=== PATIENT | female | born 2000 | race Caucasian/White ===

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

== ENCOUNTER 2019-05-03 09:45 | Emergency (ER) | payer SELFPAY ==
[2019-05-03 09:49] VITALS: BP 113/61; PULSE 107; RESP 18; TEMP 36.2; O2SAT 98
--- NOTE | 2019-05-03 10:14 | ED.GENADUL_ITS ---
Discharge Plan Disposition Patient Disposition: HOME Condition: Improving Discharge Details Chief Complaint: RespSymp Clinical Impression: Acute sinusitis Primary Care Provider: Kelvin Mcelroy ED Provider: Chucky Chow Home Meds and New Rx's Prescriptions: New amoxicillin-pot clavulanate 875-125 mg tablet 1 tab PO BID 10 Days Qty: 20 RF: 0 No Action No Known Home Meds RF: 0 Discharge Instructions Instructions: Sinusitis (ED) Additional Instructions: Home to rest. Small, frequent sips of fluids to maintain hydration. Tylenol and or ibuprofen if needed for discomfort. Please take dzyp-iye-hgoqcbu probiotic/live culture yogurt once daily in the middle of the day while on antibiotic. Follow-up with regular doctor if not improving in 7 days time. Return to the ER for any acute concern. Medical Decision Making 19-year-old female with 10 days of cough, congestion, now with left maxillary sinus pain and pressure. She is afebrile, otherwise well-appearing, she is able to take liquids by mouth. Her presentation is consistent with acute sinusitis. I will treat her with a course of Augmentin. Discussed with her the use of an olql-pqn-zylxbel probiotic or live culture yogurt while on antibiotic. She stable for outpatient management. HPI General Mode of arrival: ambulatory . Date/Time Provider Initiated Documentation: 05/03/19 09:46 . Limitations to Documentation: no limitations . Information obtained by: patient . History of Present Illness 19 year old F presents to the emergency department with the chief complaint of Cough and sinus pressure over 10 days time, Quality is described as constant, and is localized to the face and left. Patient reports no radiation. Patient started experiencing this day(s) and it has been constant. No relieving factors improve symptom(s), No exacerbating factors reported . Patient did receive the following treatments prior to arrival, none Related Data Home Medications Medication Instructions Recorded Confirmed Unknown [No Known Home Meds] 05/03/19 05/03/19 amoxicillin-pot clavulanate 1 tab PO BID 10 Days #20 tab 05/03/19 Previous Rx's Medication Instructions Recorded amoxicillin-pot clavulanate 1 tab PO BID 10 Days #20 tab 05/03/19 Allergies Allergy/AdvReac Type Severity Reaction Status Date / Time No Known Allergies Allergy Unverified 05/03/19 09:52 General Stated Complaint: RespSymp BAUTISTA: 4 Review of Systems Narrative: 6 systems reviewed and otherwise negative [facility] Medical History ANGER ISSUES Bunion of great toe of left foot DEPRESSION OR ANXIETY FTT (failure to thrive) in infant Formula intolerance. Hospitalized. Term of fraternal twins, both living Twin A born at 40 weeks. Healthy Surgical History Fracture, Closed Treatment Thumb - right Family History Mother Mental disorder DEPRESSION OR ANXIETY Father Mental disorder DEPRESSION OR ANXIETY [place] Substance abuse Mental disorder DEPRESSION OR ANXIETY Grandparent Mental disorder MGF Other Myocardial infarction [place] + Tripe bypass < age 50 Social History (Updated 06/20/18 @ 18:38 by Deana Adair DO) Smoking/Tobacco Use Status: Current every day Alcohol Intake: never Drug use: Occasionally Substance use type: marijuana Do you feel safe at home: Yes Do you feel safe in your relationship?: Yes Exam Narrative Exam Narrative: GEN: awake, alert, oriented 3. Pleasant, well groomed, interactive. HEAD: Normocephalic, atraumatic ENT: Mucous membranes moist, left maxillary sinus tenderness to percussion oropharynx unremarkable, External ear exam unremarkable EYES: PERRL, EOMI NECK: Full ROM, no HERNESTO, no menigismus CHEST/RESP: Nontender, clear to auscultation bilateral, no wheeze/rhonchi/rales CARDIOVASCULAR: RRR, no murmur, rub vargas. 2+ Rad pulse bilateral ABDOMEN: Soft, nontender, no mass. +Bowel sounds EXT: Full ROM, no edema, no rash Neuro: Grossly normal neurologic exam, conversant, interactive. Psych: Speech fluent, thoughts congruent, affect normal Course Vital Signs Vital signs: Vital Signs Temperature 36.2 C L 05/03/19 09:49 Pulse 107 H 05/03/19 09:49 Respiratory Rate 18 05/03/19 09:49 Blood Pressure 113/61 05/03/19 09:49 Pulse Oximetry 98 05/03/19 09:49 Temperature 36.2 C L 05/03/19 09:49 Temperature Source Temporal Artery Scan 05/03/19 09:49 Pulse 107 H 05/03/19 09:49 Respiratory Rate 18 05/03/19 09:49 Respiratory Effort Non-Labored 05/03/19 09:49 Blood Pressure 113/61 05/03/19 09:49 Pulse Oximetry 98 05/03/19 09:49 Oxygen Delivery Method Room Air 05/03/19 09:49 Oxygen Flow Rate 0 05/03/19 09:49 Pain Level 10 05/03/19 09:49
== END 2019-05-03 10:19 | disposition home or self-care (01) ==
PROVIDERS: Emergency Provider Emergency Medicine; PCP Pediatrics
DX: J01.00 Acute maxillary sinusitis, unspecified (principal)
CPT/HCPCS: 99282

== ENCOUNTER 2020-04-07 12:52 | Emergency (ER) | payer SELFPAY ==
[2020-04-07 13:00] VITALS: BP 117/67; PULSE 100; RESP 18; TEMP 36.6; O2SAT 100
[2020-04-07 13:15] LABS: Bilirubin Negative (Negative); Blood Negative (Negative); Clarity Clear (Clear); Glucose Negative (Negative); Ketones Negative (Negative); Leukocyte Esterase Trace (Negative); Nitrite Negative (Negative); Specific Gravity >= 1.030 (1.005-1.025); Urobilinogen 0.2 EU/dL (Up TO 0.2)
[2020-04-07 13:26] LABS: Bacteria Moderate HPF (Negative); C & S Indicated? No/Sq. Contamination; Casts Negative LPF (Negative); Crystals Many Amorphous HPF (Negative); Epithelial Cells Moderate HPF (Negative); Mucus Negative (Negative); RBC Negative HPF (0-2)
[2020-04-07 15:04] VITALS: BP 117/89; PULSE 105; RESP 24; TEMP 36.6; O2SAT 98
[2020-04-07 15:29] LABS: Bilirubin Negative (Negative); Blood Negative (Negative); Clarity Cloudy (Clear); Glucose Negative (Negative); Ketones Negative (Negative); Leukocyte Esterase Trace (Negative); Nitrite Negative (Negative); Specific Gravity 1.025 (1.005-1.025); Urobilinogen 0.2 EU/dL (Up TO 0.2)
[2020-04-07 15:44] LABS: Bacteria Moderate HPF (Negative); C & S Indicated? Yes; Casts Negative LPF (Negative); Crystals Negative HPF (Negative); Epithelial Cells Few HPF (Negative); Mucus Negative (Negative); RBC 0-2 HPF (0-2)
--- NOTE | 2020-04-07 16:03 | ED.GENADUL_ITS ---
Discharge Plan Disposition Patient Disposition: HOME Condition: Stable Discharge Details Clinical Impression: Suprapubic discomfort, UTI (urinary tract infection) Primary Care Provider: Kelvin Mcelroy ED Provider: Zoran Trejo Home Meds and New Rx's Prescriptions: New cephalexin [Keflex] 500 mg capsule 500 mg PO BID Qty: 10 RF: 0 Discharge Instructions Instructions: Urinary Tract Infection in Women (ED) Additional Instructions: Please follow-up with primary care physician of preference or women's wellness. If symptoms persist, you may need additional diagnostic testing. Return to the ER immediately for any worsening or new concerning symptoms. Referrals: [facility] [Provider Group] Sheba Olivier NP [NURSE PRACTITIONER] - Discharge Data Discharge Date/Time-TO BE ENTERED AT DEPARTURE: 04/07/20 16:25 Medical Decision Making 20-year-old female here with suprapubic abdominal discomfort with urination and also was bowel movement. Abdominal exam benign. She has no tenderness on exam. Initial urinalysis contaminated. Repeat urinalysis shows decreased epithelial cells, trace leukocyte esterase, moderate bacteria and 5-10 WBCs. Culture pending. Plan to initiate treatment for urinary tract infection with Keflex. Patient has no vaginal discharge, pain or lesions. 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 She is interested in seeing Sheba Mccall to establish primary care. Discharge instructions reviewed with the patient and she was encouraged to return for any worsening or new concerning symptoms. She understands importance of timely follow-up. She understands that if symptoms persist she may need a dditional diagnostic testing. I have placed her on the care management list to assist with arranging PCP follow-up. HPI General Mode of arrival: ambulatory . Date/Time Provider Initiated Documentation: 04/07/20 12:55 . Limitations to Documentation: no limitations . Information obtained by: patient . HPI Narrative: 20-year-old female presents with chief complaint of abdominal discomfort. Patient notes suprapubic abdominal discomfort described as painful increased pressure with urination. She also has the same mild discomfort with some bowel movements. Patient states symptoms have been present since yesterday but she has had similar intermittently in the past. She denies flank pain. She does states she has had some urgency to urinate. Patient is sexually active. She uses barrier protection condoms. She denies vaginal discharge, pain or genital lesions. Last menstrual period was about a month ago and patient notes she does have irregular periods. Related Data Home Medications Medication Instructions Recorded Confirmed cephalexin [Keflex] 500 mg PO BID #10 cap 04/07/20 Previous Rx's Medication Instructions Recorded cephalexin [Keflex] 500 mg PO BID #10 cap 04/07/20 Allergies Allergy/AdvReac Type Severity Reaction Status Date / Time No Known Allergies Allergy Unverified 04/07/20 13:02 General Stated Complaint: Urinary BAUTISTA: 3 Review of Systems All systems reviewed & are unremarkable except as noted in HPI and below Constitutional Constitutional: Denies fever(s) Gastrointestinal Gastrointestinal: Reports as per HPI Genitourinary Genitourinary: Reports as per HPI [facility] Medical History ANGER ISSUES Bunion of great toe of left foot DEPRESSION OR ANXIETY FTT (failure to thrive) in Formula intolerance. Hospitalized. Term of fraternal twins, both living Twin A born at 40 weeks. Healthy Surgical History Fracture, Closed Treatment Thumb - right Family History Mother Mental disorder DEPRESSION OR ANXIETY Father Mental disorder DEPRESSION OR ANXIETY [place] Substance abuse Mental disorder DEPRESSION OR ANXIETY Grandparent Mental disorder MGF Other Myocardial infarction CT + Tripe bypass < age 50 Social History (Updated 04/07/20 @ 21:27 by Zoran Trejo MD) Smoking/Tobacco Use Status: Former Tobacco Use Alcohol Intake: never Drug use: Occasionally Substance use type: marijuana Do you feel safe at home: Yes Do you feel safe in your relationship?: Yes Exam Const General: cooperative and no acute distress HENMT Mouth: moist mucous membranes Eyes Conjunctivae: normal conjunctivae Sclera: normal sclerae Resp Auscultation: clear to auscultation bilaterally, no rales, no rhonchi and no wheezes Cardio Rate: tachycardic Rhythm: regular rhythm GI Palpation: soft, not firm, no guarding, no masses, not rigid and nontender Skin General skin exam: no rashes or lesions noted Neuro General: patient alert, patient awake and tone normal Psych Appearance: grossly normal Mental Status: mental status grossly normal Speech and Movement: speech and movement normal Course Vital Signs Vital signs: Vital Signs Temperature 36.6 C 10/01/20 13:00 Pulse 100 H 04/07/20 13:00 Respiratory Rate 18 04/07/20 13:00 Blood Pressure 117/67 04/07/20 13:00 Pulse Oximetry 100 04/07/20 13:00 Temperature 36.6 C 04/07/20 15:04 Temperature Source Temporal Artery Scan 04/07/20 15:04 Pulse 105 H 04/07/20 15:04 Respiratory Rate 24 04/07/20 15:04 Respiratory Effort Non-Labored 04/07/20 13:15 Blood Pressure 117/89 04/07/20 15:04 Blood Pressure Position Sitting 04/07/20 13:00 Pulse Oximetry 98 04/07/20 15:04 Oxygen Delivery Method Room Air 04/07/20 15:04 Oxygen Flow Rate 0 04/07/20 15:04 Pain Level 4 04/07/20 13:00 Lab/Test Results Lab/Test Results: 04/07/20 15:17 Urine - Reflex from Ua Urine Culture - Pending Laboratory Tests Range/Units 04/07/20 04/07/20 13:00 15:17 Urine Color (Yellow) Yellow Yellow Urine Clarity (Clear) Clear Cloudy Urine pH (5-8) 7.0 7.0 Ur Specific [place] (1.005-1.025) >= 1.030 H 1.025 Urine Protein (Negative) mg/dL Negative Negative Urine Ketones (Negative) mg/dL Negative Negative Urine Blood (Negative) Negative Negative Urine Nitrite (Negative) Negative Negative Urine Bilirubin (Negative) Negative Negative Urine Urobilinogen (Up TO 0.2) EU/dL 0.2 0.2 Ur Leukocyte Esterase (Negative) Trace H Trace H Urine RBC (0-2) HPF Negative 0-2 Urine WBC (0-5) HPF 10-20 H 5-10 Ur Epithelial Cells (Negative) HPF Moderate Few Urine Crystals (Negative) HPF Many amorphous Negative Urine Bacteria (Negative) HPF Moderate Moderate Urine Casts (Negative) LPF Negative Negative Urine Mucus (Negative) Negative Negative Ur Culture Indicated? No/sq. contamination Yes Urine Glucose (Negative) mg/dL Negative Negative POC- Test(urine) Negative
[2020-04-07] MEDS: Cephalexin 500 MG CAP PO (16:14)
[2020-04-07 16:23] VITALS: BP 112/71; PULSE 77; RESP 16; O2SAT 100
--- NOTE | 2020-04-07 20:05 | NUR.NOTE ---
Referral to care management to establish pcpNursing Note:
--- NOTE | 2020-04-08 12:58 | CMPROGNOTE_ITS ---
- If Service Date Differs Date of service: 04/08/20 Time of Service: 12:58 Care Management Progress Note Debbie is seen in the ED on 04/07/2020 for a UTI and abdominal pain. At the request of Dr. Young, ED provider, RADHA coordinates a referral to [facility] to establish care with gynecology and, at patient's request, to Sheba Olivier [facility]UR[facility] MANAGER[facility] of [facility], to establish care with a PCP. After speaking with Debbie on the telephone, RADHA also coordinates a referral to [facility] to assist her in obtaining health insurance, as she is currently uninsured.
== END 2020-04-07 16:25 | disposition home or self-care (01) ==
LOC: ER 16:15
PROVIDERS: Emergency Provider Student in an Organized Health Care Education/Training Program; PCP Pediatrics
DX: N39.0 Urinary tract infection, site not specified (principal)
CPT/HCPCS: 81025; 99283; 81003; 81015; 87086

== ENCOUNTER 2021-11-17 13:08 | Emergency (ER) | payer SELFPAY ==
[2021-11-17 13:18] VITALS: BP 140/85; PULSE 111; RESP 16; TEMP 36.4; O2SAT 98
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
[2021-11-17 15:31] VITALS: BP 111/72; PULSE 86; RESP 18; TEMP 36.6; O2SAT 98
== END 2021-11-17 16:01 | disposition home or self-care (01) ==
PROVIDERS: Emergency Provider Physician Assistant
DX: M79.672 Pain in left foot (principal); M25.562 Pain in left knee; V49.9XXA Car occupant (driver) (passenger) injured in unspecified traffic accident, initial encounter; R00.0 Tachycardia, unspecified
CPT/HCPCS: 90471; 99284; 71046; 73630; 99283

== ENCOUNTER 2023-01-03 14:13 | Emergency (ER) | payer SELFPAY ==
[2023-01-03 14:21] VITALS: BP 112/72; PULSE 113; RESP 18; TEMP 36.7; O2SAT 99
--- NOTE | 2023-01-03 16:30 | ED.GENADUL_ITS ---
Discharge Plan Disposition Patient Disposition: Eloped Condition: Stable Discharge Details Chief Complaint: Sorethroat Clinical Impression: Sore throat, Tonsillar calculus Primary Care Provider: None,None ED Provider: Aditya Rodriguez Home Meds and New Rx's Prescriptions: No Action No Known Home Meds Medical Decision Making 22-year-old female presents with 1 day of sore throat, subjective fever at home, pain with swallowing, normal voice no stridor, tolerating secretions, midline uvula, does have some posterior oropharyngeal erythema with induration of the r ight tonsil compared to left, notable tonsillar stone to mid pole of right tonsil. Rapid strep negative. Trial of dexamethasone, will anesthetize oropharynx with benzocaine and attempt to express tonsillar stone. No evidence of deep space infection of head or neck. We will send strep culture. 17: 30 he was going to attempt to express tonsillar stone however patient eloped before reassessment HPI General Date/Time Provider Initiated Documentation: 01/03/23 16:15 . HPI Narrative: 22-year-old female presents with 1 day of sore throat. Pain with swallowing and a fever last night subjective. Related Data Home Medications Medication Instructions Recorded Confirmed Unknown [No Known Home Meds] 11/17/21 01/03/23 Allergies Allergy/AdvReac Type Severity Reaction Status Date / Time No Known Allergies Allergy Unverified 01/03/23 14:30 General Stated Complaint: Sorethroat BAUTISTA: 4 Review of Systems Narrative: Review of Systems Constitutional: negative Eyes: negative ENT: Sore throat Cardiovascular: negative Respiratory: negative Gastrointestinal: negative : negative Musculoskeletal: negative Skin: negative Neurologic: negative Psych: negative PFSH All Active Problems (Updated 01/03/23 @ 17:30 by Aditya Rodriguez MD) Sore throat (Acute) Tonsillar calculus (Acute) Recurrent abdominal pain (Chronic 06/16/15) Routine sports examination for healthy child or adolescent (Chronic 12/09/12) Normal weight (Chronic 06/16/15) Fecal urgency (Chronic 02/02/15) Family history of celiac disease (Chronic 02/02/15) Family history of cardiovascular disease (Chronic 02/02/15) MATERNAL UNCLE [place] AND TRIPLE BY-PASS AGE 35 Anxiety (Chronic 03/19/16) Medical History (Updated 01/03/23 @ 17:30 by Aditya Rodriguez MD) ANGER ISSUES Bunion of great toe of left foot DEPRESSION OR ANXIETY FTT (failure to thrive) in infant Formula intolerance. Hospitalized. Term of fraternal twins, both living Twin A born at 40 weeks. Healthy Surgical History Fracture, Closed Treatment Thumb - right Family History Mother Mental disorder DEPRESSION OR ANXIETY Father Mental disorder DEPRESSION OR ANXIETY [place] Substance abuse Mental disorder DEPRESSION OR ANXIETY Grandparent Mental disorder MGF Other Myocardial infarction [place] + Tripe bypass < age 50 Social History (Updated 04/07/20 @ 21:27 by Zoran Trejo MD) Smoking/Tobacco Use Status: Current every day Tobacco Type: cigarettes Smoking risk assessment performed?: Yes Alcohol Intake: never Drug use: Occasionally Substance use type: marijuana Do you feel safe at home: Yes Do you feel safe in your relationship?: Yes Exam Narrative Exam Narrative: Physical Examination General: alert, awake, cooperative, resting comfortably, no acute distress HEENT: normocephalic, atraumatic; PERRL, EOM intact, conjunctiva normal; no nasal discharge; mild erythema to posterior oropharynx, right tonsil enlarged compared to left, notable tonsillar stone mid pole of right tonsil; midline uvula tolerating secretions no stridor, normal voice Neck: supple, trachea midline; full ROM Chest: normal to inspection Course Vital Signs Vital signs: Vital Signs Temperature 36.7 C 01/03/23 14:21 Pulse 113 H 01/03/23 14:21 Respiratory Rate 18 01/03/23 14:21 Blood Pressure 112/72 01/03/23 14:21 Pulse Oximetry 99 01/03/23 14:21 Temperature 36.7 C 01/03/23 14:21 Temperature Source Temporal Artery Scan 01/03/23 14:21 Pulse 113 H 01/03/23 14:21 Respiratory Rate 18 01/03/23 14:21 Respiratory Effort Normal 01/03/23 14:30 Blood Pressure 112/72 01/03/23 14:21 Blood Pressure Position Sitting 01/03/23 14:21 Pulse Oximetry 99 01/03/23 14:21 Oxygen Delivery Method Room Air 01/03/23 14:21 Oxygen Flow Rate 0 01/03/23 14:21 Pain Level 8 01/03/23 14:21 Lab/Test Results Lab/Test Results: 01/03/23 14:27 Pharynx Group A Streptococcus Culture - Pending POC Strep Test-STEPHAN(Rapid) Start: 01/03/23 14:39 Freq: Status: Active Protocol: Document 01/03/23 14:40 ROSALIE (Rec: 01/03/23 14:40 ROSALIE [id number]) Strep test-STEPHAN(Rapid)-POC POC-Strep test-STEPHAN (Rapid) Negative POC-Strep test-STEPHAN (Rapid) Negative
[2023-01-03] MEDS: Dexamethasone 10 MG/ML VIAL PO (16:38)
--- NOTE | 2023-01-03 17:28 | NUR.NOTE ---
Nursing Note: Pt eloped following assessment by physician and medication administration.
== END 2023-01-03 17:30 | disposition left against medical advice (07) ==
PROVIDERS: Emergency Provider Emergency Medicine
DX: J35.8 Other chronic diseases of tonsils and adenoids (principal); J02.9 Acute pharyngitis, unspecified
CPT/HCPCS: 87880; 99283; 87081; J1100

== ENCOUNTER 2023-10-04 15:48 | Emergency (ER) | payer SELFPAY ==
[2023-10-04 15:52] VITALS: BP 145/90; PULSE 113; RESP 18; TEMP 36.9; O2SAT 145
[2023-10-04 16:12] LABS: Bilirubin Negative (Negative); Blood Large (Negative); Clarity Turbid (Clear); Glucose Negative (Negative); Ketones Negative (Negative); Leukocyte Esterase Small (Negative); Nitrite Negative (Negative); Specific Gravity >= 1.030 (1.005-1.025); Urobilinogen 0.2 mg/dL (Up to 0.2)
[2023-10-04 16:15] LABS: Bacteria Few HPF (Negative); C & S Indicated? Yes; Casts Negative LPF (Negative); Crystals Negative HPF (Negative); Epithelial Cells Few HPF (Negative); Mucus Moderate (Negative); RBC >50 HPF (0-2); WBC >50 HPF (0-5)
--- NOTE | 2023-10-04 21:14 | ED.GENADUL_ITS ---
Discharge Plan Disposition Patient Disposition: Home Discharge Details Clinical Impression: UTI (urinary tract infection) Primary Care Provider: Unknown,Unknown ED Provider: Radha Mckay Home Meds and New Rx's Prescriptions: New nitrofurantoin monohyd/m-cryst [Macrobid] 100 mg capsule 100 mg PO Q12H 7 Days Qty: 14 0RF Rx Instructions: must administer with a meal/food No Action No Known Home Meds Discharge Instructions Instructions: Urinary Tract Infection in Women (ED) Additional Instructions: take antibiotic as prescribed yogurt daily while on antibiotic should you have persistent symptoms after antibiotic is completed, please be reevaluated Discharge Data Discharge Date/Time-TO BE ENTERED AT DEPARTURE: 10/04/23 16:30 HPI General Date/Time Provider Initiated Documentation: 10/04/23 16:04 . HPI Narrative: This 23-year-old female presents with report of urinary frequency and urgency. Denies any flank pain. Sexually active and monogamous. Status post elective approximately 2 months ago but has not had any pelvic pain per patient. Denies any vaginal discharge. Denies any chest pain, shortness of breath, weakness. Related Data Home Medications Medication Instructions Recorded Confirmed Unknown [No Known Home Meds] 11/17/21 10/04/23 nitrofurantoin 100 mg PO Q12H 7 days #14 caps 10/04/23 monohydrate/macrocrystals 100 mg capsule (Macrobid) Previous Rx's Medication Instructions Recorded nitrofurantoin 100 mg PO Q12H 7 days #14 caps 10/04/23 monohydrate/macrocrystals 100 mg capsule (Macrobid) Allergies Allergy/AdvReac Type Severity Reaction Status Date / Time No Known Allergies Allergy Unverified 10/04/23 15:54 General Stated Complaint: Urinary BAUTISTA: 4 Course Vital Signs Vital signs: Vital Signs Temperature 36.9 C 10/04/23 15:52 Pulse 113 H 10/04/23 15:52 Respiratory Rate 18 10/04/23 15:52 Blood Pressure 145/90 H 10/04/23 15:52 Pulse Oximetry 145 H 10/04/23 15:52 Temperature 36.9 C 10/04/23 15:52 Temperature Source Skin 10/04/23 15:52 Pulse 113 H 10/04/23 15:52 Respiratory Rate 18 10/04/23 15:52 Respiratory Effort Normal 10/04/23 15:54 Blood Pressure 145/90 H 10/04/23 15:52 Blood Pressure Position Sitting 10/04/23 15:52 Pulse Oximetry 145 H 10/04/23 15:52 Oxygen Delivery Method Room Air 10/04/23 15:52 Oxygen Flow Rate 0 10/04/23 15:52 Pain Level 5 10/04/23 16:12 Lab/Test Results Lab/Test Results: 10/04/23 16:05 Urine - Reflex from Ua Urine Culture - Pending Laboratory Tests Range/Units 10/04/23 16:05 Urine Color (Yellow) Yellow Urine Clarity (Clear) Turbid Urine pH (5-8) 6.0 Ur Specific [place] (1.005-1.025) >= 1.030 H Urine Protein (Neg-Trace) mg/dL Negative Urine Ketones (Negative) mg/dL Negative Urine Blood (Negative) Large H Urine Nitrite (Negative) Negative Urine Bilirubin (Negative) Negative Urine Urobilinogen (Up to 0.2) mg/dL 0.2 Ur Leukocyte Esterase (Negative) Small H Urine RBC (0-2) HPF >50 H Urine WBC (0-5) HPF >50 H Ur Epithelial Cells (Negative) HPF Few Urine Crystals (Negative) HPF Negative Urine Bacteria (Negative) HPF Few Urine Casts (Negative) LPF Negative Urine Mucus (Negative) Moderate Ur Culture Indicated? Yes Urine Glucose (Negative) mg/dL Negative POC- Test(urine) Negative Medical Decision Making Urinalysis concerning for urinary tract infection, does not express concern for sexually transmitted disease, oxygenation 98 on room air, pulse 101 at reassessment by me Urinalysis will be sent for culture Will initiate Macrobid Patient is alert and oriented, no acute distress, no abdominal tenderness appreciated, no CVA tenderness No vomiting Aware that should she have persistent symptoms despite taking antibiotic she should be reevaluated Return precautions reviewed and patient expressed understanding Quality:SDOH Health Related Social Needs: No Data to Display PFSH All Active Problems (Updated 10/04/23 @ 16:21 by VIVIENNE Elise) UTI (urinary tract infection) (Acute) Recurrent abdominal pain (Chronic 06/16/15) Routine sports examination for healthy child or adolescent (Chronic 12/09/12) Normal weight (Chronic 06/16/15) Fecal urgency (Chronic 02/02/15) Family history of celiac disease (Chronic 02/02/15) Family history of cardiovascular disease (Chronic 02/02/15) MATERNAL UNCLE [place] AND TRIPLE BY-PASS AGE 35 Anxiety (Chronic 03/19/16) Medical History (Updated 10/04/23 @ 16:21 by VIVIENNE Elise) Bunion of great toe of left foot FTT (failure to thrive) in Formula intolerance. Hospitalized. Term of fraternal twins, both living Twin A born at 40 weeks. Healthy DEPRESSION OR ANXIETY ANGER ISSUES Surgical History Fracture, Closed Treatment Thumb - right Family History Mother Mental disorder DEPRESSION OR ANXIETY Father Mental disorder DEPRESSION OR ANXIETY [place] Substance abuse Mental disorder DEPRESSION OR ANXIETY Grandparent Mental disorder MGF Other Myocardial infarction [place] + Tripe bypass < age 50 Social History (Updated 04/07/20 @ 21:27 by Zoran Trejo MD) Smoking/Tobacco Use Status: Current every day Tobacco Type: e-cigarettes Smoking risk assessment performed?: Yes Alcohol Intake: never Drug use: Occasionally Substance use type: marijuana Do you feel safe at home: Yes Do you feel safe in your relationship?: Yes
== END 2023-10-04 16:30 | disposition home or self-care (01) ==
LOC: ER 16:28
PROVIDERS: Emergency Provider Physician Assistant
DX: N39.0 Urinary tract infection, site not specified (principal); F17.290 Nicotine dependence, other tobacco product, uncomplicated
CPT/HCPCS: 99283; 81003; 81015; 87086; 99284

== ENCOUNTER 2024-04-10 11:57 | Emergency (ER) | payer SELFPAY ==
[2024-04-10 12:08] VITALS: BP 128/85; PULSE 95; RESP 18; TEMP 36.6; O2SAT 99
[2024-04-10 12:40] LABS: Bilirubin Negative (Negative); Blood Negative (Negative); Clarity Cloudy (Clear); Glucose Negative (Negative); Ketones Negative (Negative); Leukocyte Esterase Negative (Negative); Nitrite Negative (Negative); Urobilinogen 0.2 mg/dL (Up to 0.2); pH 7.5 (5-8)
--- NOTE | 2024-04-10 13:07 | W.ED.GENAD ---
Discharge Plan Disposition Patient Disposition: Home Condition: Stable Discharge Details Clinical Impression: Lumbar back pain Primary Care Provider: Unknown,Unknown ED Provider: Jez Cheng Home Meds and New Rx's Prescriptions: No Action No Known Home Meds Discharge Instructions Instructions: Diclofenac (Topical), Low Back Pain ED Additional Instructions: You were seen in the emergency department for your right lumbar back pain. This is likely sciatica. Please take 650 mg of Tylenol every 6 hours like clockwork. You may purchase goir-toy-gyhkjwj diclofenac topical or Voltaren gel and apply in small amounts to the area of pain, this is safe to do before 20 weeks . If you must and you are sure you are prior to 20 weeks gestation you can take some intermittent doses of ibuprofen, 400 mg every 6 hours. All of the skeletal muscle relaxers are not advised to take during , you may alternate heat and ice to the area, and perform gentle massage to encourage muscle relaxation. You can follow-up with massage therapy, I am referring you to physical therapy, you may attempt lower back only adjustments at chiropractor as desired. Please return to the emergency department for severe increase in low back pain especially with urinary retention or loss of stool in your pants, numbness to the groin and inability to use your lower extremities. Stand Alone Forms: Physical Therapy Referral, Work Release Discharge Data Discharge Date/Time-TO BE ENTERED AT DEPARTURE: 04/10/24 14:11 HPI General Date/Time Provider Initiated Documentation: 04/10/24 12:19. HPI Narrative: 24 year-old female presents to ED today by POV/ambulating with a chief complaint of R lower back pain, thinks she pulled a muscle- is with recent positive test at-home. Quality described as just a muscle strain, no radiation to dysuria, hematuria, dark urine, shortness of breath, midline back pain. Severity is described as mild. Palliating factors include nothing specific attempted. Provoking factors include certain movements at work. Patient endorses the pain does radiate around to her thigh. Patient not anticoagulated. Related Data Home Medications ?Medication ?Instructions ?Recorded ?Confirmed Unknown [No Known Home Meds] 11/17/21 10/04/23 Allergies Allergy/AdvReac Type Severity Reaction Status Date / Time No Known Allergies Allergy Unverified 10/04/23 15:54 General Stated Complaint: Nk/Back Pain BAUTISTA: 3 Review of Systems All systems reviewed & are unremarkable except as noted in HPI and below Exam Narrative Exam Narrative: GENERAL APPEARANCE: Well-nourished, non-toxic, awake and alert, atraumatic, no acute distress. SKIN: Warm, pink, dry, intact, without rashes/lesions/ulcerations. HEAD: Normocephalic, atraumatic, normal hair distribution for gender/age. EYES: Normal conjunctiva, no exudates on lids/lashes. ENT: Nares patent, no circumoral cyanosis, no facial swelling NECK: Supple, trachea midline, painless cervical ROM. LUNGS/CHEST: Non-labored respirations, normal A/P diameter, symmetrical expansion, no chest wall deformity HEART (CV/PV): No peripheral edema, no JVD. ABDOMEN: Soft, non-distended, no guarding, no anterior abdominal tenderness, no CVA tenderness bilaterally to percussion. MSK: Normal ROM, no swelling/deformity to bilateral UEs or LEs, moving all extremities without weakness, no cyanosis, spine midline without tenderness, normal curvature. Right paraspinal lumbar muscular palpable tension and tenderness radiating down to the lateral right thigh. NEURO: Mental Status AAOx4 - alert to person, place, time, events No facial droop, no forehead involvement. Motor: No focal weakness - strength 5/5 in bilateral UEs and LEs, proximal and distal, symmetric. Sensory: sensation intact to light touch globally. Gait normal: patient ambulated without ataxia into ED room. PSYCH: euthymic, cooperative, pleasant, appropriate speech Course Vital Signs Vital signs: Vital Signs Temperature 36.6 C 04/10/24 12:08 Pulse 95 H 04/10/24 12:08 Respiratory Rate 18 04/10/24 12:08 Blood Pressure 128/85 04/10/24 12:08 Pulse Oximetry 99 04/10/24 12:08 Temperature 36.6 C 04/10/24 12:08 Temperature Source Oral 04/10/24 12:08 Pulse 95 H 04/10/24 12:08 Respiratory Rate 18 04/10/24 12:08 Respiratory Effort Normal, Non-Labored 04/10/24 13:02 Blood Pressure 128/85 04/10/24 12:08 Blood Pressure Position Sitting 04/10/24 12:08 Pulse Oximetry 99 10/04/24 12:08 Oxygen Delivery Method Room Air 04/10/24 12:08 Oxygen Flow Rate 0 04/10/24 12:08 Lab/Test Results Lab/Test Results: Laboratory Tests Range/Units 04/10/24 12:21 Urine Color (Yellow) Yellow Urine Clarity (Clear) Cloudy Urine pH (5-8) 7.5 Ur Specific [place] (1.005-1.025) 1.020 Urine Protein (Neg-Trace) mg/dL Negative Urine Ketones (Negative) mg/dL Negative Urine Blood (Negative) Negative Urine Nitrite (Negative) Negative Urine Bilirubin (Negative) Negative Urine Urobilinogen (Up to 0.2) mg/dL 0.2 Ur Leukocyte Esterase (Negative) Negative Urine Glucose (Negative) mg/dL Negative POC- Test(urine) Positive Medical Decision Making This dictation utilizes hkkqr-gn-[id number] dictation software and may contain unedited grammatical errors. 24 year-old female presents to ED today by POV/ambulating with a chief complaint of R lower back pain, thinks she pulled a muscle- is with recent positive test at-home. Quality described as just a muscle strain, no radiation to dysuria, hematuria, dark urine, shortness of breath, midline back pain. Severity is described as mild. Palliating factors include nothing specific attempted. Provoking factors include certain movements at work. Patient endorses the pain does radiate around to her thigh. Patients' medical history: Noncontributory. Family and social history: Noncontributory. Pertinent exam findings / vital signs include right lumbar paraspinal back pain and sciatic distribution, no CVA tenderness to percussion bilaterally, no anterior abdominal tenderness. Differential / pathologies of concern include lumbar back pain, UTI, renal stone. Diagnostic studies of: -UA benign -Upreg positive. Interventions of: -None, physical therapy referral. ED Course/Assessment/Plan: 24-year-old female presents with lumbar right back pain radiating around to her thigh and sciatic distribution, denies any urinary symptoms whatsoever had a recent at home test so we did decide in shared decision making against any radiating imaging studies today, she was open to physical therapy referral for her lumbar back pain, I counseled her on establishing care, strict return criteria for any acute worsening or other emergent concern. Findings not consistent with cauda equina, UTI, renal stones. Disposition of Lumbar Back Pain. Patient verbalized understanding of the plan and return to ED criteria and engaged in shared decision making. Medical Records Medical records reviewed: Yes I reviewed the patient's medical records. Lab Data Lab results reviewed: Yes I reviewed the patient's lab results. Labs: Laboratory Tests Range/Units 04/10/24 12:21 Urine Color (Yellow) Yellow Urine Clarity (Clear) Cloudy Urine pH (5-8) 7.5 Ur Specific [place] (1.005-1.025) 1.020 Urine Protein (Neg-Trace) mg/dL Negative Urine Ketones (Negative) mg/dL Negative Urine Blood (Negative) Negative Urine Nitrite (Negative) Negative Urine Bilirubin (Negative) Negative Urine Urobilinogen (Up to 0.2) mg/dL 0.2 Ur Leukocyte Esterase (Negative) Negative Urine Glucose (Negative) mg/dL Negative Quality:SDOH Health Related Social Needs: No Data to Display PFSH All Active Problems (Updated 04/10/24 @ 13:39 by VIVIENNE Maria) Lumbar back pain (Acute) Recurrent abdominal pain (Chronic 06/16/15) Routine sports examination for healthy child or adolescent (Chronic 12/09/12) Normal weight (Chronic 06/16/15) Fecal urgency (Chronic 02/02/15) Family history of celiac disease (Chronic 02/02/15) Family history of cardiovascular disease (Chronic 02/02/15) MATERNAL UNCLE [place] AND TRIPLE BY-PASS AGE 35 Anxiety (Chronic 03/19/16) Medical History (Updated 04/10/24 @ 13:39 by VIVIENNE Maria) Bunion of great toe of left foot FTT (failure to thrive) in infant Formula intolerance. Hospitalized. Term of fraternal twins, both living Twin A born at 40 weeks. Healthy DEPRESSION OR ANXIETY ANGER ISSUES Surgical History Fracture, Closed Treatment Thumb - right Family History Mother Mental disorder DEPRESSION OR ANXIETY Father Mental disorder DEPRESSION OR ANXIETY [place] Substance abuse Mental disorder DEPRESSION OR ANXIETY Grandparent Mental disorder MGF Other Myocardial infarction [place] + Tripe bypass < age 50 Social History (Updated 04/07/20 @ 21:27 by Zoran Trejo MD) Smoking/Tobacco Use Status: Current every day Tobacco Type: e-cigarettes Smoking risk assessment performed?: Yes Alcohol Intake: never Drug use: Occasionally Substance use type: marijuana Do you feel safe at home: Yes Do you feel safe in your relationship?: Yes
[2024-04-10 14:09] VITALS: BP 100/64; PULSE 91; RESP 18; O2SAT 95
== END 2024-04-10 14:11 | disposition home or self-care (01) ==
PROVIDERS: Emergency Medicine; Emergency Provider Physician Assistant
DX: M54.50 Low back pain, unspecified (principal)
CPT/HCPCS: 81025; 99283; 81003

== ENCOUNTER 2024-05-20 02:16 | Outpatient (CLI) | payer SELFPAY ==
[2024-05-20 10:24] LABS: Panorama Kit Sent via Fed Ex
[2024-05-20 10:35] LABS: Abs Immature Grans 0.02 10^3/uL (0.0-0.06); Absolute Basophil Count 0.04 10^3/uL (0.0-0.2); Absolute Eosinophil Count 0.12 10^3/uL (0.0-0.7); Absolute Lymphocyte Count 1.71 10^3/uL (1.2-3.4); Absolute Monocyte Count 0.49 10^3/uL (0.1-0.8); Absolute Neutrophil Count 5.49 10^3/uL (1.2-6.7); Basophils % 0.5 %; Eosinophils % 1.5 %; HCT 38.1 % (36.0-46.0); HGB 12.8 g/dL (11.2-15.7); Immature Grans % 0.3 %; Lymphocytes % 21.7 %; MCH 31.4 pg (27.0-33.0); MCHC 33.6 % (32.0-36.0); MCV 93 fL (80-95); MPV 9.4 fL (8.0-11.0); Monocytes % 6.2 %; Neutrophils % 69.8 %; Platelet Count 252 10^3/uL (130-400); RBC 4.08 10^6/uL (3.93-5.22); RDW 11.9 % (11.7-14.6); RDW-SD 41.2 fL; WBC 7.87 10^3/uL (4.4-10.8)
[2024-05-20 18:47] LABS: Hepatitis B Surface Ag Negative (Negative)
[2024-05-20 19:22] LABS: HIV-1/2 Ag & Ab Screen Negative (Negative)
[2024-05-20 19:47] LABS: Hepatitis C Ab w Rflx HCV PCR Negative (Negative)
[2024-05-21 11:04] LABS: Rubella IgG Ab (UVM) Positive (See Note); Varicella IgG Antibody Negative (See Note)
[2024-05-22 15:49] LABS: Syphilis IgG w/Reflex Nonreactive (Nonreactive)
== END 2024-05-20 02:17 | disposition home or self-care (01) ==
LOC: LBO 02:17
PROVIDERS: Visit Provider Advanced Practice Midwife
DX: Z34.91 Encounter for supervision of normal pregnancy, unspecified, first trimester (principal)
CPT/HCPCS: 36415; 86787; 86803; 86850; 86900; 86901; 87340; 87389; 85025; 86762; 86780

== ENCOUNTER 2024-05-20 10:19 | Outpatient (REF) | payer SELFPAY ==
--- NOTE | 2024-05-20 09:45 | PAPFT_PTH ---
PATIENT: Debbie Juan V LOC: [facility] U#:[id number] AGE/SX: 24/F ROOM: RE05/20/[address]: Chica Olsen : 2000 BED: DIS: 05/20/2024 SPEC #: [id number] RECD: 05/20/24 12:49 STATUS: MASOOD REQ #: [id number] FANI: 05/20/24 09:[address]: Chica Olsen DEPT: [facility] Cytology RECD BY: Radha Leger ENTERED: 05/20/24 12:49 SP TYPE: PAPFT OTHR DR: Unknown,Unknown Tissues: 1 - CX/ENDOCX FOR PAP SMEARS Procedures: PAP THIN PREP/UVM Screening Comments: [id number] (CHLAMYDIA/GC)
[2024-05-20 11:52] LABS: *AMPHETAMINES SCREEN URINE Negative (Negative); *BARBITURATES SCREEN URINE Negative (Negative); *BENZODIAZEPINES SCREEN URINE Negative (Negative); Cannabinoids THC Negative (Negative); Cocaine Screen,Urine Negative (Negative); METHADONE URINE SCREEN Negative (Negative); OPIATES URINE SCREEN Negative (Negative)
[2024-05-20 11:56] LABS: Tricyclic Antidepressants Negative (Negative)
[2024-05-21 12:20] LABS: Chlamydia Result Negative (Negative); GC Result Negative (Negative)
[2024-05-21 12:21] LABS: Fentanyl Scr w/Rfx Confirm Negative ng/mL (<1)
[2024-05-27 11:29] LABS: Buprenorphine Negative ng/mL (Cutoff: 5.0); Norbuprenorphine Negative ng/mL (Cutoff: 2.5)
== END 2024-05-20 10:20 | disposition home or self-care (01) ==
LOC: LBN 10:19
PROVIDERS: Visit Provider Advanced Practice Midwife
DX: Z34.91 Encounter for supervision of normal pregnancy, unspecified, first trimester (principal); Z3A.12 12 weeks gestation of pregnancy
CPT/HCPCS: 80307; 80348; 87491; 87591; 88142; 87086

== ENCOUNTER 2024-09-10 03:00 | Outpatient (CLI) | payer MEDICAID, SELFPAY ==
[2024-09-10 11:00] LABS: HCT 29.8 % (36.0-46.0); HGB 9.7 g/dL (11.2-15.7); MCH 30.7 pg (27.0-33.0); MCHC 32.6 % (32.0-36.0); MCV 94 fL (80-95); MPV 9.1 fL (8.0-11.0); Platelet Count 273 10^3/uL (130-400); RBC 3.16 10^6/uL (3.93-5.22); RDW 13.1 % (11.7-14.6); RDW-SD 45.1 fL; WBC 9.36 10^3/uL (4.4-10.8)
[2024-09-10 11:33] LABS: Glucose,1 Hr (Glucola) 131 mg/dL (80-140)
== END 2024-09-10 03:01 | disposition home or self-care (01) ==
PROVIDERS: Visit Provider Advanced Practice Midwife
DX: Z34.92 Encounter for supervision of normal pregnancy, unspecified, second trimester (principal)
CPT/HCPCS: 36415; 82950; 85027

== ENCOUNTER 2024-09-25 12:32 | Outpatient (REF) | payer MEDICAID, SELFPAY ==
[2024-09-25 15:58] LABS: *AMPHETAMINES SCREEN URINE Negative (Negative); *BARBITURATES SCREEN URINE Negative (Negative); *BENZODIAZEPINES SCREEN URINE Negative (Negative); Cannabinoids THC Negative (Negative); Cocaine Screen,Urine Negative (Negative); METHADONE URINE SCREEN Negative (Negative); OPIATES URINE SCREEN Negative (Negative)
[2024-09-25 16:07] LABS: Tricyclic Antidepressants Negative (Negative)
[2024-09-26 18:27] LABS: Fentanyl Scr w/Rfx Confirm Negative ng/mL (<1)
[2024-09-30 07:51] LABS: Buprenorphine Negative ng/mL (Cutoff: 5.0); Norbuprenorphine Negative ng/mL (Cutoff: 2.5)
== END 2024-09-25 12:33 | disposition home or self-care (01) ==
LOC: LBN 12:32
PROVIDERS: Visit Provider Advanced Practice Midwife
DX: Z34.93 Encounter for supervision of normal pregnancy, unspecified, third trimester (principal); Z3A.30 30 weeks gestation of pregnancy
CPT/HCPCS: 80307; 80348

== ENCOUNTER 2024-10-03 08:05 | Observation (INO) | payer MEDICAID, SELFPAY ==
[2024-10-03] VITALS (15 sets, daily range): BP systolic 111–126; BP diastolic 59–84; PULSE 87–116; RESP 12–18; TEMP 36.4–36.8; O2SAT 94–97
--- NOTE | 2024-10-03 | DI.US_ITS ---
Exam(s) US RENAL EXAM: US RENAL CLINICAL HISTORY: right flank pain TECHNIQUE: Ultrasound of both kidneys performed using standard protocol. COMPARISON: US US OB 2-3 TRIMESTER from 07/17/2024 FINDINGS: This patient has apparently 32 weeks , complaining of right flank pain RIGHT KIDNEY: Measures 11.5 cm in length. No cysts evident. Normal cortical thickness and corticomedullary differen tiation .No solid masses There is, however, mild right-sided hydronephrosis. No obvious intrarenal calculi.No obvious calculu s seen in the partially visualized upper most right ureter. LEFT KIDNEY: Measures 10.1 cm in length. No cysts evident. Normal cortical thickness and corticomedullary differe ntiaion. No solids masses. No intrarenal calculi nor hydonephrosis. URINARY BLADDER: Prevoid volume is only 20 cc No evidence of obvious intravesicular calculi, bladder mass nor bladder diverticuli. Ureterovesical jets: Both not identified. IMPRESSION: 1. Mild-moderate right-sided hydronephrosis and hydroureter. No obvious calculus evident within the kidney nor within the visualized dilated uppermost right ureter. Please note that the entire right ureter is not able to be seen on ultrasound. 2. No obvious ultrasound visible calculus within the urinary bladder lumen. DATA REPOSITORY:
--- NOTE | 2024-10-03 08:15 | ED.GENADUL_ITS ---
Discharge Plan Disposition Patient Disposition: Admit to [facility] Discharge Details Chief Complaint: Nk/Back Pain Clinical Impression: Low back pain during in third trimester Primary Care Provider: Unknown,Unknown ED Provider: Madeline Morrow Home Meds and New Rx's Prescriptions: No Action aspirin 81 mg tablet,delayed release (DR/EC) 162 mg PO DAILY Qty: 60 7RF PNV,calcium 81-karj-ezwad acid 27 mg iron- 1 mg tablet 1 tab PO DAILY Qty: 90 5RF Rx Instructions: give with food (meal/snack) fluoxetine 20 mg capsule 20 mg PO DAILY Qty: 30 5RF ferrous sulfate 325 mg (65 mg iron) tablet 325 mg PO DAILY Qty: 30 4RF HPI General Date/Time Provider Initiated Documentation: 10/03/24 08:07 . Limitations to Documentation: no limitations . Information obtained by: patient . HPI Narrative: 24y F A1 presents for evaluation of right lower back pain. reports acute onset, severe, woke her up from sleep. has been constant. cannot find position of comfort. hasn't tried any medications. she reports the pain radiates around to the front of her abdomen, and that her stomach hurts but she isn't sure if she's having cramping. she denies any bleeding or loss of fluid. is followed by ob care here. Related Data Home Medications ?Medication ?Instructions ?Recorded ?Confirmed aspirin 81 mg tablet,delayed 162 mg (2 x 81 mg) PO DAILY #60 05/20/24 09/25/24 release tabs vitamin with calcium 1 tab PO DAILY #90 tabs 05/20/24 09/25/24 no.72-iron 27 mg-folic acid 1 mg tablet ferrous sulfate 325 mg (65 mg 325 mg PO DAILY #30 tabs 09/10/24 09/25/24 iron) tablet fluoxetine 20 mg capsule 20 mg PO DAILY #30 caps 09/25/24 09/25/24 Previous Rx's ?Medication ?Instructions ?Recorded aspirin 81 mg tablet,delayed 162 mg (2 x 81 mg) PO DAILY #60 05/20/24 release tabs vitamin with calcium 1 tab PO DAILY #90 tabs 05/20/24 no.72-iron 27 mg-folic acid 1 mg tablet ferrous sulfate 325 mg (65 mg 325 mg PO DAILY #30 tabs 09/10/24 iron) tablet fluoxetine 20 mg capsule 20 mg PO DAILY #30 caps 09/25/24 Allergies Allergy/AdvReac Type Severity Reaction Status Date / Time No Known Allergies Allergy Verified 10/03/24 08:23 General Stated Complaint: Nk/Back Pain BAUTISTA: 3 Exam Narrative Exam Narrative: Review of Systems: All systems reviewed & are unremarkable except as noted in HPI and below Well-developed, no acute distress NCAT RRR Unlabored respiratory effort, ctab gravid abdomen, soft no CVAT Extremities w/o edema Course Vital Signs Vital signs: Vital Signs Temperature 36.4 C 10/03/24 08:07 Pulse 116 H 10/03/24 08:07 Respiratory Rate 18 10/03/24 08:07 Blood Pressure 122/67 10/03/24 08:07 Pulse Oximetry 97 10/03/24 08:07 Temperature 36.4 C 10/03/24 08:07 Temperature Source Tympanic 10/03/24 08:07 Pulse 116 H 10/03/24 08:07 Respiratory Rate 18 10/03/24 08:07 Blood Pressure 122/67 10/03/24 08:07 Pulse Oximetry 97 10/03/24 08:07 Oxygen Delivery Method Room Air 10/03/24 08:07 Oxygen Flow Rate 0 10/03/24 08:07 Medical Decision Making emergent evaluation of back pain in late . initial differential includes musculoskeletal pain, renal colic, UTI, martell chi, early labor. no timed contractions or loss of fluid to indicate active labor. Does have history of low back pain, but reports this feels different today. VS don't indicate pre- eclampsia. Tylenol ordered. Urine ordered to eval for protein, blood, infection. Discussed with ob and patient will go up to L&D for further monitoring. Quality:[facility] Health Related Social Needs: No Data to Display PFSH All Active Problems (Updated 10/03/24 @ 08:28 by Madeline Morrow MD) Low back pain during in third trimester (Acute) Anemia affecting (Acute) Tobacco use during (Acute) Back pain affecting (Acute) Maternal varicella, non-immune (Acute) (Acute) Anxiety (Chronic 03/19/16) Medical History (Updated 10/03/24 @ 08:28 by Madeline Morrow MD) Recurrent abdominal pain (06/16/15) Fecal urgency (02/02/15) Family history of cardiovascular disease (02/02/15) MATERNAL UNCLE [place] AND TRIPLE BY-PASS AGE 35 Family history of celiac disease (02/02/15) Bunion of great toe of left foot Term of fraternal twins, both living Twin A born at 40 weeks. Healthy DEPRESSION OR ANXIETY ANGER ISSUES Surgical History Fracture, Closed Treatment Thumb - right Family History (Updated 05/20/24 @ 09:20 by Chica Olsen CNM) Mother Mental disorder DEPRESSION OR ANXIETY Heart disease [place] age 58 Diabetes Gestational diabetes Father Mental disorder DEPRESSION OR ANXIETY Celiac disease [place] Substance abuse Mental disorder DEPRESSION OR ANXIETY Grandparent Mental disorder MGF Other Myocardial infarction [place] + Tripe bypass < age 50 Maternal Uncle Heart disease [place] age 35 Maternal Grandmother Diabetes Stroke Sister Pre-eclampsia affecting childbirth Sister Celiac disease Social History (Updated 04/15/24 @ 11:37 by Kyra Riley NP) Smoking/Tobacco Use Status: Current every day Tobacco Type: e-cigarettes Smoking risk assessment performed?: Yes Alcohol Intake: never Drug use: Occasionally Substance use type: marijuana Do you feel safe at home: Yes Do you feel safe in your relationship?: Yes History History 2 Para 0 Hx # Term Pregnancies 0 Multiple births 0 Hx # Pregnancies 0 Ectopic pregnancies 0 AB induced 1 Hx Number of Living Children 0 AB spontaneous 0
[2024-10-03] MEDS: Acetaminophen 500 MG TAB 1000 MG PO ×2 (08:19→17:21)
--- NOTE | 2024-10-03 09:29 | W.PM.OBHPL1 ---
Date of service: 10/03/24 Time of Service: : Assessment and Plan Assessment and plan (1) Right flank pain: Status: Acute Assessment and plan: Admitted to the center for hydration and pain relief. UA pending. Will start IV for LR 500 cc bolus and observe. Zofran 4 mg IV for nausea and pain relief with Dilaudid as indicated. (2) Low back pain during in third trimester: Status: Acute Assessment and plan: Bedrest with BRP. Pain management and urine culture if indicated. Dr Esparza is notified of Patient status. OB-HPI Labor/Delivery History of Present Illness Reason for Visit: severe back pain/31 wks pregnent Chief Complaint: Maternal Discomfort (right flank pain ) , Associated Signs and Symptoms of Maternal Discomfort: low back pain on right. MARCIA Calculator Estimated Delivery Date Method Current WG Current Estimate 12/02/24 LMP (Certain) 31w 3d Comments: Debbie awoke this morning with severe low right back pain and right flank pain. She presented to the ED and was transferred to the center for evaluation. She has vomited and she is requesting pain medication. She was seen in the ED early in her for right sided low back pain but she describes this pain as being different and she is having difficulty finding a comfortable position. She is getting relief from light effleurage from her mother. History of Present Expected Delivery Route/Plan - CNM FOB - Alejandro (his first child) BG Varicella non immune, offer vaccine Pt plans epidural anesthesia Specific Issues/Plan 1. Increased risk preeclampsia due to family history - ASA recommended daily. 2. 5-ps pos for previous use - UDS neg, 28 wk UDS ___ 3. Tobacco vaping, she is trying to cut down- counselled 3a. 32wk growth US__ 5. Anxiety, Start Prozac 10mg 09/08/24. Reassess affect ~10/09/24 6. Anemia @ 28 wks, start iron tabs 7. Chronic back pain - seen at ED prior to . Refer to PCP . PFSH All Active Problems (Updated 10/03/24 @ 09:08 by Chica Olsen CNM) Right flank pain (Acute) Low back pain during in third trimester (Acute) Anemia affecting (Acute) Tobacco use during (Acute) Back pain affecting (Acute) Maternal varicella, non-immune (Acute) (Acute) Anxiety (Chronic 03/19/16) Medical History (Updated 10/03/24 @ 09:08 by Chica Olsen CNM) Recurrent abdominal pain (06/16/15) Fecal urgency (02/02/15) Family history of cardiovascular disease (02/02/15) MATERNAL UNCLE [place] AND TRIPLE BY-PASS AGE 35 Family history of celiac disease (02/02/15) Bunion of great toe of left foot Term of fraternal twins, both living Twin A born at 40 weeks. Healthy DEPRESSION OR ANXIETY ANGER ISSUES Surgical History Fracture, Closed Treatment Thumb - right Family History (Updated 05/20/24 @ 09:20 by Chica Olsen CNM) Mother Mental disorder DEPRESSION OR ANXIETY Heart disease [place] age 58 Diabetes Gestational diabetes Father Mental disorder DEPRESSION OR ANXIETY Celiac disease [place] Substance abuse Mental disorder DEPRESSION OR ANXIETY Grandparent Mental disorder MGF Other Myocardial infarction [place] + Tripe bypass < age 50 Maternal Uncle Heart disease [place] age 35 Maternal Grandmother Diabetes Stroke Sister Pre-eclampsia affecting childbirth Sister Celiac disease Social History (Updated 04/15/24 @ 11:37 by Kyra Riley NP) Smoking/Tobacco Use Status: Current every day Tobacco Type: e-cigarettes Smoking risk assessment performed?: Yes Alcohol Intake: never Drug use: Occasionally Substance use type: marijuana Do you feel safe at home: Yes Do you feel safe in your relationship?: Yes History History 2 Para 0 Hx # Term Pregnancies 0 Multiple births 0 Hx # Pregnancies 0 Ectopic pregnancies 0 AB induced 1 Hx Number of Living Children 0 AB spontaneous 0 Meds Allergies and Home Medications Allergies Allergy/AdvReac Type Severity Reaction Status Date / Time No Known Allergies Allergy Verified 10/03/24 08:23 Home Medications ?Medication ?Instructions ?Recorded ?Confirmed ?Type aspirin 81 mg tablet,delayed 162 mg (2 x 81 mg) PO DAILY #60 05/20/24 10/03/24 Rx release tabs vitamin with calcium 1 tab PO DAILY #90 tabs 05/20/24 10/03/24 Rx no.72-iron 27 mg-folic acid 1 mg tablet ferrous sulfate 325 mg (65 mg 325 mg PO DAILY #30 tabs 09/10/24 10/03/24 Rx iron) tablet fluoxetine 20 mg capsule 20 mg PO DAILY #30 caps 09/25/24 10/03/24 Rx Exam Physical Exam Vital signs: Temp Pulse Resp BP Pulse Ox 97.6 F 100 H 18 117/59 L 97 10/03/24 08:07 10/03/24 08:53 10/03/24 08:07 10/03/24 08:53 10/03/24 08:07 Vital Signs Reviewed: Yes Constitutional Constitutional: moderate distress (due to nausea and pain) Detailed Labor and Delivery Exam Lepe Score: Cervical Points Exam 0 1 2 3 Dilation Closed 1-2cm 3-4 cm 5-6cm Effacement 0-30% 40-50% 60-70% 80% Consistency Firm Medium Soft Station -3 -2 -1,0 +1,+2 Position Posterior Mid Anterior Fetus A Heart Rate Baseline: 140 Monitor Accelerations: 15 X 15 Monitor Decelerations: None Variability: Moderate (6-25 BPM) Presentation: Cephalic Categories: Category I HEENT Exam HEENT Exam: Normal Respiratory Exam Respiratory Exam: Normal Cardiovascular Exam Cardiovascular Exam: Normal Abdominal Exam Abdominal Exam: Normal Exam Exam: Normal Extremities Exam Extremities Exam: Normal Skin Exam Skin Exam: Normal Risk Assessment Risk for Shoulder Dystocia Historical/Initial OB: NEGATIVE FOR: Pelvic Abnormality, Pre- BMI>30, Previous Shoulder Dystocia or Previous Macrosomia Risk for Pre-Eclampsia Date Initiated/Initials: 05/20/25 Yes, if one or more: NEGATIVE FOR: Hx Pre-E/Gest HTN, Chronic HTN, Multiple Gestation, Pre-gestational DM, Renal Disease, Systemic Lupus or APA Syndrome Yes, if 2 or more: POSITIVE FOR: Nulliparity and Mother/Sister w/ Pre-E; NEGATIVE FOR: Age>= 35 yrs, >10yr btwn pregnancies, BMI>30, ethinicty or Previous IUGR Risk for Post- Hemorrhage Initial: NEGATIVE FOR: Multiple Gestation, Previous PPH, Known Clotting Deficiency, Grand Multiparity or Anticoagulation Risks Reviewed Risks Reviewed Upon Admission: Yes
[2024-10-03 09:32] LABS: Bilirubin Negative (Negative); Blood Moderate (Negative); Clarity Clear (Clear); Glucose Negative (Negative); Ketones Negative (Negative); Leukocyte Esterase Negative (Negative); Nitrite Negative (Negative); Specific Gravity >= 1.030 (1.005-1.025); Urobilinogen 0.2 mg/dL (Up to 0.2)
[2024-10-03 09:44] LABS: RBC 20-50 HPF (0-2); WBC 0-2 HPF (0-5)
[2024-10-03 09:45] LABS: Bacteria Rare HPF (Negative); C & S Indicated? No; Casts 0-2 Hyaline LPF (Negative); Crystals Rare Calcium Oxalate HPF (Negative); Epithelial Cells Many HPF (Negative); Mucus Trace (Negative)
[2024-10-03 09:49] LABS: HCT 28.3 % (36.0-46.0); HGB 9.3 g/dL (11.2-15.7); MCH 30.4 pg (27.0-33.0); MCHC 32.9 % (32.0-36.0); MCV 93 fL (80-95); MPV 8.9 fL (8.0-11.0); Platelet Count 239 10^3/uL (130-400); RBC 3.06 10^6/uL (3.93-5.22); RDW 13.5 % (11.7-14.6); RDW-SD 45.6 fL; WBC 9.24 10^3/uL (4.4-10.8)
[2024-10-03] MEDS: Lactated Ringers 1,000 ML 200 ML IV ×2 (10:00→13:18)
[2024-10-03] MEDS: Ondansetron 4 MG/2 ML VIAL IVP ×2 (10:06→14:55)
[2024-10-03 10:09] LABS: ALT 12 U/L (14-59); AST 13 U/L (15-37); Albumin 2.4 g/dL (3.4-5.0); Alkaline Phosphatase 81 U/L (46-116); Anion Gap 11.4 mmol/L (3-11); BUN 9 mg/dL (7-18); Bilirubin, Total 0.2 mg/dL (0.2-1.0); CO2 22.6 mmol/L (21.0-32.0); CREATININE 0.7 mg/dL (0.55-1.02); Calcium 8.3 mg/dL (8.5-10.1); Chloride 105 mmol/L (98-107); Estimated GFR 123.01 (mL/min/1.73m2); Glucose 118 mg/dL (74-106); Potassium 3.5 mmol/L (3.5-5.1); Sodium 139 mmol/L (136-145); Total Protein 6.5 g/dL (6.4-8.2)
[2024-10-03] MEDS: HYDROmorphone 2 MG/ML SYR 1 MG IVP (10:13)
--- NOTE | 2024-10-03 12:18 | W.PM.PROGNOT ---
Date of Service Date of service: 10/03/24 Time of Service: 12:18 Assessment and Plan Assessment and plan (1) Hydronephrosis, right: Status: Acute Assessment and plan: Will offer Dilaudid 2 mg PO now and encourage PO fluid intake. IV bolus 500 cc will be administered now. Debbie may go home with PO pain medication if tolerating PO medication and oral fluids and food well. Dr Esparza was notified by phone of Debbie's admission and status. (2) Anemia affecting : Status: Acute Assessment and plan: Will administer iron sucrose IV now while she has IV in place. Subjective Subjective Patient reports: no new complaints Interval history since last seen: Debbie is afebrile. She has been resting and continues to complain of pain in right flank. She is requesting pain medication. Renal US performed. Pad Making Machine Operator's worksheet indicates no evidence of kidney stones with mod. right hydronephrosis. Bladder not well visualized as fluid bolus was not given and bladder was not full. CMP and CBC drawn. HGB 9.3. Debbie has been taking PO iron at home daily for anemia. Objective Last Vital Signs Temp 97.6 F 10/03/24 08:07 Pulse 92 H 10/03/24 11:11 Resp 18 10/03/24 08:07 BP 111/73 10/03/24 10:34 Pulse Ox 94 10/03/24 11:11 Laboratory Results - last 24 hr 10/03/24 10/03/24 09:05 09:40 WBC 9.24 RBC 3.06 L Hgb 9.3 L Hct 28.3 L MCV 93 MCH 30.4 MCHC 32.9 RDW 13.5 Plt Count 239 MPV 8.9 Sodium 139 Potassium 3.5 Chloride 105 Carbon Dioxide 22.6 Anion Gap 11.4 H BUN 9 Creatinine 0.7 Est GFR (CKD-EPI 2020) 123.01 Glucose 118 H Calcium 8.3 L Total Bilirubin 0.2 AST 13 L ALT 12 L Alkaline Phosphatase 81 Total Protein 6.5 Albumin 2.4 L Urine Color Yellow Urine Clarity Clear Urine pH 6.0 Ur Specific [place] >= 1.030 H Urine Protein 30 H Urine Ketones Negative Urine Blood Moderate H Urine Nitrite Negative Urine Bilirubin Negative Urine Urobilinogen 0.2 Ur Leukocyte Esterase Negative Urine RBC 20-50 H Urine WBC 0-2 Ur Epithelial Cells Many Urine Crystals Rare Calcium Oxalate Urine Bacteria Rare Urine Casts 0-2 Hyaline Urine Mucus Trace Ur Culture Indicated? No Urine Glucose Negative Reviewed Pertinent PMH: Yes Time Spent with Patient Time Spent with Patient: 25-34 minutes Time was spent: preparing to see the patient(eg.review tests), obtaining and/or reviewing separately otained hiistory, ordering medications,tests, procedures, referring, communicating with other health senior care specialist, indepentently interpreting results and counseling the patient
[2024-10-03] MEDS: HYDROmorphone 2 MG TAB PO ×2 (12:36→16:40)
--- NOTE | 2024-10-03 12:37 | DI.VRAD_ITS ---
PROCEDURE INFORMATION: Exam: US Retroperitoneal, Complete, Kidneys and Bladder Exam date and time: 10/03/2024 11:20 AM Age: 24 years old Clinical indication: Other: RT flank pain; 32 weeks TECHNIQUE: Imaging protocol: Real-time ultrasound of the retroperitoneum with image documentation. Complete exam focused on the bilateral kidneys and urinary bladder. COMPARISON: US OB 2-3 TRIMESTER 07/17/2024 10:41 AM FINDINGS: Right kidney: Right kidney measures 11.5 cm in length. Moderate hydronephrosis. No cyst or mass. Left kidney: Left kidney measures 10.1 cm. No cyst or mass. No hydronephrosis. Urinary bladder: Bladder is empty with a normal thin wall. IMPRESSION: Mild right-sided hydronephrosis of . Dictated and Authenticated by: Chucky Cameron MD. Orderin Raúl Coto MD
[2024-10-03] MEDS: IRON SUCROSE COMPLEX 200 MG in Normal Saline 100 ML 400 MG IVPB (12:53)
--- NOTE | 2024-10-03 13:44 | W.OBNST ---
Date of service: 10/03/24 Time of Service: 13:45 NST Evaluation Reason for NST Reasons for Nonstress Test: OTHER, SEE COMMENT Reason for NST Other: well being Gestational Age Gestational Age in Weeks and Days: 31 Weeks and 3Days Test and Monitor Explained Test/Monitor Explained: Test Explained, Monitor Explained and Patient Verbalized Understanding Vital Signs Blood Pressure: 117/59 Pulse: 100 Temperature: 98.2 F NST Information Date on Monitor: 10/03/24 Time on Monitor: 08:40 Date off Monitor: 10/03/24 Time off Monitor: 09:00 Total Time on Monitor: 20 NST Interventions: None NST Evaluation Patient States Movement: Present FHR Baseline: 140 Variability: Moderate 6-25 bpm Accelerations: 15x15 Decelerations: None NST Results: Reactive Note Ultrasound Done: N/A. NST Note Note: Debbie presented to the ED with right low back and flank pain. Admitted for pain relief and observation. reactive NST. NST Reviewed and Verified by: Chica Olsen
[2024-10-03] MEDS: Normal Saline Flush 10 ML SYR (14:56)
--- NOTE | 2024-10-03 17:50 | W.PM.PROGNOT ---
Date of Service Date of service: 10/03/24 Time of Service: 17:50 Assessment and Plan Assessment and plan (1) Hydronephrosis, right: Status: Acute Assessment and plan: I discussed spending the night for pain management or going home with PO pain medications and antiemetic medication tonight. Debbie is undecided which she would prefer so I suggested that she ppick up prescriptions for Dilaudid and zofran before the pharmacy closes and then she has the option of going home tonight. Debbie lives with Alejandro and would be returning home with him. Will await her decision about where she would like to spend the night. Plam reviewed by phone with Dr. Esparza who agrees. Subjective Subjective Patient reports: still having pain, tolerating liquids well and voiding w/o difficulty Interval history since last seen: Debbie is reporting that her pain has lessened but is still at 10 /10. She is ambulating in the room without difficulty and movoing in bed well. She is tolerating cranberry juice and denies nausea. She has been taking Dilaudid 4 mg every 4 hours and zofran 4 mg ODT as well as extra strength tylenol 1000mg PO. . Her partner Alejandro has been providing support to her as well as her mother, Charlotte. Objective Last Vital Signs Temp 98.1 F 10/03/24 14:45 Pulse 93 H 10/03/24 14:45 Resp 16 10/03/24 14:45 BP 126/84 10/03/24 14:45 Pulse Ox 95 10/03/24 14:45 Laboratory Results - last 24 hr 10/03/24 10/03/24 09:05 09:40 WBC 9.24 RBC 3.06 L Hgb 9.3 L Hct 28.3 L MCV 93 MCH 30.4 MCHC 32.9 RDW 13.5 Plt Count 239 MPV 8.9 Sodium 139 Potassium 3.5 Chloride 105 Carbon Dioxide 22.6 Anion Gap 11.4 H BUN 9 Creatinine 0.7 Est GFR (CKD-EPI 2020) 123.01 Glucose 118 H Calcium 8.3 L Total Bilirubin 0.2 AST 13 L ALT 12 L Alkaline Phosphatase 81 Total Protein 6.5 Albumin 2.4 L Urine Color Yellow Urine Clarity Clear Urine pH 6.0 Ur Specific [place] >= 1.030 H Urine Protein 30 H Urine Ketones Negative Urine Blood Moderate H Urine Nitrite Negative Urine Bilirubin Negative Urine Urobilinogen 0.2 Ur Leukocyte Esterase Negative Urine RBC 20-50 H Urine WBC 0-2 Ur Epithelial Cells Many Urine Crystals Rare Calcium Oxalate Urine Bacteria Rare Urine Casts 0-2 Hyaline Urine Mucus Trace Ur Culture Indicated? No Urine Glucose Negative Reviewed Pertinent PMH: Yes Objective Narrative Objective Narrative: Debbie is observed moving well without assistance and ambulating without difficulty. Time Spent with Patient Time Spent with Patient: <25 minutes Time was spent: preparing to see the patient(eg.review tests), obtaining and/or reviewing separately otained hiistory, ordering medications,tests, procedures, referring, communicating with other health plant health care technician, indepentently interpreting results and counseling the patient
--- NOTE | 2024-10-03 18:10 | W.PM.DS.N ---
Date of service: 10/03/24 Time of Service: 18:10 DS: Diagnosis Discharge Diagnosis (1) Hydronephrosis, right: Status: Acute Asessment and Plan: Debbie and her partner Alejandro have decided to go home this evening. Her mother picked up Dilaudid prescription #20 and Zofran ODT 4 MG # 20 with 1 refill. They will follow up with [facility] for next appointment. Instructions to call if pain worsens and is unresponsive to oral pain medication. Discharge Plan Disposition Patient Disposition: Home Condition: Good Discharge Details Reason For Visit: severe back pain/31 wks pregnent Admit Date/Time: 10/03/24 08:35 Admit Provider: Torie Esparza Attending Provider: Torie Esparza Primary Care Provider: Unknown,Unknown Home Meds and New Rx's Prescriptions: Continued aspirin 81 mg tablet,delayed release (DR/EC) 162 mg PO DAILY Qty: 60 7RF PNV,calcium 51-vfeg-etxda acid 27 mg iron- 1 mg tablet 1 tab PO DAILY Qty: 90 5RF Rx Instructions: give with food (meal/snack) fluoxetine 20 mg capsule 20 mg PO DAILY Qty: 30 5RF ferrous sulfate 325 mg (65 mg iron) tablet 325 mg PO DAILY Qty: 30 4RF ondansetron 4 mg tablet,disintegrating 4 mg PO Q6H PRN (Reason: nausea and vomiting) Qty: 20 1RF hydromorphone [Dilaudid] 2 mg tablet 2 mg PO Q4H MDD 12 mg PRN (Reason: pain) Qty: 20 0RF Discharge Instructions Activity:: Activity as Tolerated Equipment/Supplies:: No Equipment Needed Diet:: As Tolerated Discharge Orders Discharge Orders: Discharge Order (Routine); Ordered 10/03/24 Ordered By: Chica Olsen DS: Summary Time Spent with Patient providing and/or coordinating discharge services: Greater than 30 minutes Status at Discharge Functional status at discharge: independent ambulation Overall status at discharge: patient is progressing back to baseline Mental Status: mental status grossly normal Speech and Movement: speech and movement normal Mood: congruent mood Affect: normal affect Quality:SDOH Health Related Social Needs: No Data to Display Exam Narrative Exam Narrative: Debbie reports that her pain is at 8 and she feels better. Const General: cooperative Orientation: alert Resp Effort & Inspection: normal respiratory effort Auscultation: clear to auscultation bilaterally GI Palpation: soft Other: Pos. right CVA tenderness. Extrem General: normal to inspection Psych Appearance: grossly normal Mental Status: mental status grossly normal Speech and Movement: speech and movement normal Mood: congruent mood Affect: normal affect DS: Data Vitals/I&O Vitals and I&O: Vital Signs Temperature 98.1 F 10/03/24 14:45 Temperature 98.2 F 10/03/24 13:46 Temperature Source Oral 10/03/24 14:45 Pulse 93 H 10/03/24 14:45 Pulse 100 10/03/24 13:46 Pulse Rhythm Regular 10/03/24 14:45 Respiratory Rate 16 10/03/24 14:45 Blood Pressure 126/84 10/03/24 14:45 Blood Pressure 117/59 10/03/24 13:46 Blood Pressure Mean 93 10/03/24 12:21 Pulse Oximetry 95 10/03/24 14:45 Oxygen Delivery Method Room Air 10/03/24 14:45 Oxygen Flow Rate 0 10/03/24 14:45 Pain Level 10 10/03/24 17:21 Intake & Output 10/02/24 10/03/24 10/03/24 23:59 11:59 23:59 Intake Total 660 / 660 Output Total 750 / 750 Balance -90 / -90 Weight 198 lb 192 lb Intake: IV 660 / 660 Output: Urine 750 / 750 Other: Urine Color Yellow Urine Appearance Clear Urine Odor None Data Completed and Pending Labs on day of discharge: Labs from last 24 hours 10/03/24 10/03/24 09:40 09:05 WBC 9.24 RBC 3.06 L Hgb 9.3 L Hct 28.3 L MCV 93 MCH 30.4 MCHC 32.9 RDW 13.5 Plt Count 239 MPV 8.9 Sodium 139 Potassium 3.5 Chloride 105 Carbon Dioxide 22.6 Anion Gap 11.4 H BUN 9 Creatinine 0.7 Est GFR (CKD-EPI 2020) 123.01 Glucose 118 H Calcium 8.3 L Total Bilirubin 0.2 AST 13 L ALT 12 L Alkaline Phosphatase 81 Total Protein 6.5 Albumin 2.4 L Urine Color Yellow Urine Clarity Clear Urine pH 6.0 Ur Specific [place] >= 1.030 H Urine Protein 30 H Urine Ketones Negative Urine Blood Moderate H Urine Nitrite Negative Urine Bilirubin Negative Urine Urobilinogen 0.2 Ur Leukocyte Esterase Negative Urine RBC 20-50 H Urine WBC 0-2 Ur Epithelial Cells Many Urine Crystals Rare Calcium Oxalate Urine Bacteria Rare Urine Casts 0-2 Hyaline Urine Mucus Trace Ur Culture Indicated? No Urine Glucose Negative PFSH All Active Problems (Updated 10/03/24 @ 12:23 by Chica Olsen CNM) Hydronephrosis, right (Acute) Right flank pain (Acute) Low back pain during in third trimester (Acute) Anemia affecting (Acute) Tobacco use during (Acute) Back pain affecting (Acute) Maternal varicella, non-immune (Acute) (Acute) Anxiety (Chronic 03/19/16) Medical History (Updated 10/03/24 @ 12:23 by Cihca Olsen CNM) Recurrent abdominal pain (06/16/15) Fecal urgency (02/02/15) Family history of cardiovascular disease (02/02/15) MATERNAL UNCLE MD AND TRIPLE BY-PASS AGE 35 Family history of celiac disease (02/02/15) Bunion of great toe of left foot Term of fraternal twins, both living Twin A born at 40 weeks. Healthy DEPRESSION OR ANXIETY ANGER ISSUES Surgical History Fracture, Closed Treatment Thumb - right Family History (Updated 10/03/24 @ 09:49 by Chica Olsen CNM) Mother Mental disorder DEPRESSION OR ANXIETY Heart disease MD age 58 Diabetes Gestational diabetes Father Mental disorder DEPRESSION OR ANXIETY Celiac disease [place] Substance abuse Mental disorder DEPRESSION OR ANXIETY Grandparent Mental disorder MGF Other Myocardial infarction MD + Tripe bypass < age 50 Maternal Uncle Heart disease MD age 35 Kidney stones Maternal Grandmother Diabetes Stroke Kidney disease Sister Pre-eclampsia affecting childbirth Sister Celiac disease Social History (Updated 04/15/24 @ 11:37 by Kyra Riley NP) Smoking/Tobacco Use Status: Current every day Tobacco Type: e-cigarettes Smoking risk assessment performed?: Yes Alcohol Intake: never Drug use: Occasionally Substance use type: marijuana Do you feel safe at home: Yes Do you feel safe in your relationship?: Yes History History 2 Para 0 Hx # Term Pregnancies 0 Multiple births 0 Hx # Pregnancies 0 Ectopic pregnancies 0 AB induced 1 Hx Number of Living Children 0 AB spontaneous 0 Time Spent with Patient Time Spent with Patient: <45 minutes Time was spent: preparing to see the patient(eg.review tests), obtaining and/or reviewing separately otained hiistory, ordering medications,tests, procedures, referring, communicating with other health health care marketing specialist, indepentently interpreting results, counseling the patient and care coordination
== END 2024-10-03 18:37 | disposition home or self-care (01) ==
LOC: ER 08:28 → OBS 08:37
PROVIDERS: Advanced Practice Midwife; Admitting Provider Obstetrics & Gynecology; Emergency Provider Emergency Medicine; Visit Provider Obstetrics & Gynecology
DX: O26.893 Other specified pregnancy related conditions, third trimester (principal); N13.39 Other hydronephrosis; R10.31 Right lower quadrant pain; Z3A.32 32 weeks gestation of pregnancy; R11.11 Vomiting without nausea; O99.333 Smoking (tobacco) complicating pregnancy, third trimester; F17.290 Nicotine dependence, other tobacco product, uncomplicated; O99.013 Anemia complicating pregnancy, third trimester; D64.9 Anemia, unspecified; O99.343 Other mental disorders complicating pregnancy, third trimester; O99.891 Other specified diseases and conditions complicating pregnancy; F41.9 Anxiety disorder, unspecified
CPT/HCPCS: 59025; 36415; 76770; 80053; 85027; 96360; 96361; 96365; 96368; 96375; 96376; 99285; 81003; 81015; G0378; J1171; J1756; J2405

== ENCOUNTER 2024-10-12 02:02 | Outpatient (CLI) | payer MEDICAID, SELFPAY ==
--- NOTE | 2024-10-12 06:45 | DI.US_ITS ---
Exam(s) US OB GRANT WEIGHT EXAM: US OB GRANT WEIGHT CLINICAL HISTORY: growth and GRANT,tobacco use during ,O99.330. TECHNIQUE: Transabdominal obstetrical ultrasound performed. COMPARISON: US US OB 2-3 TRIMESTER from 07/17/2024 US US RENAL from 10/03/2024 FINDINGS:: Number of fetuses: 1 position: CEPHALIC Placental location: ANTERIOR No evidence of previa. BIOMETRIC DATA: BPD: 8.3cm, 33weeks 3days HC: 30.19cm, 33weeks 4days AC: 27.52cm, 31weeks 4days FL: 6.12cm, 31weeks 5days EFW: 1,878.31g, 4lb 2.97oz, 20.1% Composite Age: 32weeks 4days MARCIA: 12/03/2024 Heart Rate: 129bpm Amniotic fluid index: 14.67cm. Visually, amount of fluid is within normal limits. IMPRESSION: size and weight are within the expected range. DATA REPOSITORY:
== END 2024-10-12 02:22 ==
LOC: DI 02:02
PROVIDERS: Visit Provider Advanced Practice Midwife
DX: O99.333 Smoking (tobacco) complicating pregnancy, third trimester (principal); Z3A.33 33 weeks gestation of pregnancy
CPT/HCPCS: 76816

== ENCOUNTER 2024-11-12 11:17 | Outpatient (REF) | payer MEDICAID, SELFPAY | END 2024-11-12 11:18 | disposition home or self-care (01) | LOC: LBN 11:17 | PROVIDERS: Visit Provider Advanced Practice Midwife | DX: Z34.93 Encounter for supervision of normal pregnancy, unspecified, third trimester (principal) | CPT/HCPCS: 87081 ==

== ENCOUNTER 2024-12-09 07:44 | Outpatient (CLI) | payer MEDICAID, SELFPAY ==
[2024-12-09 09:17] VITALS: BP 110/60; PULSE 108; TEMP 36.9
[2024-12-09 09:29] VITALS: BP 110/60; PULSE 108
--- NOTE | 2024-12-09 10:07 | W.OBNST ---
Date of service: 12/09/24 Time of Service: 10:08 NST Evaluation Reason for NST Reasons for Nonstress Test: POSTDATES Gestational Age Gestational Age in Weeks and Days: 41 Weeks and 0Days Test and Monitor Explained Test/Monitor Explained: Test Explained, Monitor Explained and Patient Verbalized Understanding Vital Signs Blood Pressure: 110/60 Pulse: 108 Temperature: 98.4 F NST Information Date on Monitor: 12/09/24 Time on Monitor: 09:11 Date off Monitor: 12/09/24 Time off Monitor: 09:35 Total Time on Monitor: 24 NST Interventions: None NST Evaluation Patient States Movement: Present FHR Baseline: 140 Variability: Moderate 6-25 bpm Accelerations: 15x15 Decelerations: None NST Results: Reactive Note Ultrasound Done: N/A. NST Note Note: Debbie is here for NST. She strongly desires induction of labor. GRANT ccheked by Maricruz Mcgraw CNM and is 16. Cervix 1 cm/post/thick NST Reviewed and Verified by: Chica Olsen
[2024-12-09 10:09] VITALS: BP 110/60; PULSE 108; TEMP 36.9
[2024-12-09 10:58] VITALS: BP 109/64; PULSE 77
== END 2024-12-09 10:13 | disposition other institution (70) ==
LOC: BCD 07:48 → OBS 09:16
PROVIDERS: Visit Provider Advanced Practice Midwife
DX: O48.0 Post-term pregnancy (principal); Z3A.41 41 weeks gestation of pregnancy
CPT/HCPCS: 59025

== ENCOUNTER 2024-12-10 14:52 | Inpatient (IN) | payer MEDICAID, SELFPAY ==
[2024-12-10] VITALS (7 sets, daily range): BP systolic 101–114; BP diastolic 56–65; PULSE 92–112; RESP 18; TEMP 35.9–36.6; O2SAT 95–96
--- NOTE | 2024-12-10 17:34 | W.PM.OBHPL1 ---
Date of service: 12/10/24 Time of Service: 17:34 Assessment and Plan Assessment and plan (1) Encounter for induction of labor: Status: Acute Assessment and plan: A: 24 yo @ 41+1 wks, IOL for postdates Cvx unfavorable with Eugene score of 1 GBS negative, category 1 tracing, increased risk of SD and PPH due to primara, TWG >40 lb, IOL process anxiety (Rx'ed fluoxetine) and tobacco use during P: Admit to L&D, CBC, T&S R&B of IOL reviewed thoroughly with pt and partner Reviewed possible lengthy time frame of process, risk of c/s, discomforts Pt plans epidural anesthesia when in labor Will begin with misprostel for cervical ripening tonight Dr. Esparza consulting prn (2) 41 weeks gestation of : Status: Acute OB-HPI Labor/Delivery History of Present Illness Reason for Visit: induction for post dates Chief Complaint: Scheduled Induction of Labor (41+1 wks ) Indication for Induction: Post Date. MARCIA Calculator Estimated Delivery Date Method Current WG Current Estimate 12/02/24 LMP (Certain) 41w 1d History of Present Expected Delivery Route/Plan - CNM FOB - Alejandro Kendrick (his first child) BG-Alex Kendrick Varicella non immune, offer vaccine Pt plans epidural anesthesia, support: MotherCharlotte GBS negative Specific Issues/Plan 1. Increased risk preeclampsia due to family history - ASA recommended daily. 2. 5-ps pos for previous use - UDS neg, 28 wk UDS negative 3. Tobacco vaping, she is trying to cut down- counselled 3a. 32wk growth US: EFW 20th percentile, GRANT 15, cephalic 3b. Vaping less often at term. 5. Anxiety, Start Prozac 10mg 09/08/24. 6. Anemia @ 28 wks, start iron tabs. 10/03 - Hgb 9.3 - iron infusion at the Center 10/03, 6a. 10/14/24 Hgb 13.9 via hemoglobinanalyzer. recheck CBC 11/02 7. Chronic back pain - seen at ED prior to . Refer to PCP 8. Right flank pain - Admitted to center and mild right hydronephrosis diagnosed by US. Pain managed with Dilaudid PO 8a. Tylenol only, dilaudid and zofran RX cancelled 10/14/24 9. Intertrigo below breasts bilat, Dx 10/23, RX for Clotramizole-Betamethasone BID + drying powders and aeration 9a. Not covered by insurance-medicated powder recommended daily after shower. Assessment: History Reviewed & Current Informed Consent Informed Consent: Induction of Labor and Risk,Benefits,Alternatives Discussed Review of Systems Narrative: ROS completed and found to be noncontributory PFSH All Active Problems (Updated 12/10/24 @ 20:58 by Cathy Mcgraw) 41 weeks gestation of (Acute) Encounter for induction of labor (Acute) Dali infection (Acute) of skin in breast area History of OCD (obsessive compulsive disorder) (Acute) Per Pt (not formally Dx) Need to rule out. Hydronephrosis, right (Acute) Anemia affecting (Acute) Tobacco use during (Acute) Back pain affecting (Acute) Maternal varicella, non-immune (Acute) (Acute) Anxiety (Chronic 03/19/16) Per Pt- Dx'd as a child - unsure who dx'd this. Medical History (Updated 12/10/24 @ 20:58 by Cathy Mcgraw) Right flank pain Recurrent abdominal pain (06/16/15) Fecal urgency (02/02/15) Family history of cardiovascular disease (02/02/15) MATERNAL UNCLE [place] AND TRIPLE BY-PASS AGE 35 Family history of celiac disease (02/02/15) Bunion of great toe of left foot Term of fraternal twins, both living Twin A born at 40 weeks. Healthy DEPRESSION OR ANXIETY ANGER ISSUES Surgical History Fracture, Closed Treatment Thumb - right Family History (Updated 11/24/24 @ 15:35 by Chica Olsen CNM) Mother Mental disorder DEPRESSION OR ANXIETY Heart disease [place] age 58 Diabetes Gestational diabetes Anxiety Father Mental disorder DEPRESSION OR ANXIETY Celiac disease [place] Substance abuse Mental disorder DEPRESSION OR ANXIETY Grandparent Mental disorder MGF Other Myocardial infarction [place] + Tripe bypass < age 50 Maternal Uncle Heart disease [place] age 35 Kidney stones Maternal Grandmother Diabetes Stroke Kidney disease Sister Pre-eclampsia affecting childbirth Sister Celiac disease Brother Alcohol use disorder Substance use disorder Social History (Updated 04/15/24 @ 11:37 by Wayzata Osvaldo IMPLEMENTATION SPECIALIST) Smoking/Tobacco Use Status: Current every day Tobacco Type: e-cigarettes Tobacco: How many years used: 3 Smoking risk assessment performed?: Yes Alcohol Intake: never Drug use: Occasionally Substance use type: marijuana Housing: house Do you feel safe at home: Yes Do you feel safe in your relationship?: Yes History History 2 Para 0 Hx # Term Pregnancies 0 Multiple births 0 Hx # Pregnancies 0 Ectopic pregnancies 0 AB induced 1 Hx Number of Living Children 0 AB spontaneous 0 Meds Allergies and Home Medications Allergies Allergy/AdvReac Type Severity Reaction Status Date / Time No Known Allergies Allergy Verified 12/10/24 18:03 Home Medications ?Medication ?Instructions ?Recorded ?Confirmed ?Type aspirin 81 mg tablet,delayed 162 mg (2 x 81 mg) PO DAILY #60 05/20/24 12/10/24 Rx release tabs vitamin with calcium 1 tab PO DAILY #90 tabs 05/20/24 12/10/24 Rx no.72-iron 27 mg-folic acid 1 mg tablet ferrous sulfate 325 mg (65 mg 325 mg PO DAILY #30 tabs 09/10/24 12/10/24 Rx iron) tablet fluoxetine 10 mg capsule 10 mg PO DAILY #30 caps 11/17/24 12/10/24 Rx Exam Physical Exam Vital signs: Temp Pulse Resp BP Pulse Ox 97.8 F 108 H 18 114/65 96 12/10/24 17:06 12/10/24 17:10 12/10/24 17:06 12/10/24 17:06 12/10/24 17:10 Vital Signs Reviewed: Yes Constitutional Constitutional: no acute distress, average body habitus and cooperative Detailed Labor and Delivery Exam Dilation: 1 (exam done yesterday) Effacement (%): 20 station: -4 Cervix position: posterior Consistency: firm EUGENE Score(Cervical Ripeness Score): 1 Amniotic Membrane Status: Intact Monitor Mode: External Contraction Frequency(min): 1 in 10 minutes Contraction Intensity: Mild (pt does not feel the contractions) Fetus A Heart Rate Baseline: 145 Monitor Accelerations: Present Monitor Decelerations: None Variability: Moderate (6-25 BPM) Categories: Category I Est. Weight: 8 lb 6.041 oz Est. Weight: 3800 gms HEENT Exam HEENT Exam: Normal Neck Exam Neck Exam: Normal Chest/Brest/Axilla Exam Chest Exam: Normal Breast Exam Breast Exam: Not Done Respiratory Exam Respiratory Exam: Normal Cardiovascular Exam Cardiovascular Exam: Normal Abdominal Exam Abdominal Exam: Normal (Gravid, nontender) Rectal Exam Rectal Exam: Normal Exam Exam: Normal Extremities Exam Extremities Exam: Normal Back/Spine/Pelvis Exam Back Exam: Normal Pelvis Adequate: Yes Skin Exam Skin Exam: Normal Neurological Exam Neurological Exam: Normal Psychiatric Exam Psychiatric Exam: Normal Results Results Group Beta Strep: Negative Blood Type: A+ Rubella Status: Nonimmune Varicella Immunity: Immune Risk Assessment Risk for Shoulder Dystocia Historical/Initial OB: NEGATIVE FOR: Pelvic Abnormality, Pre- BMI>30, Previous Shoulder Dystocia or Previous Macrosomia 36 Weeks: NEGATIVE FOR: Current Gestational DM, EFW>4500gms or Maternal Weight Gain>40lbs 40 Weeks: POSTIVE FOR: Maternal Weight Gain >40lb and Post Dates; NEGATIVE FOR: EFW> 4500 gms Increased Risk?: Yes Delivery Plan @ 36wks: Delivery Plan @ 40 wks: , IOL @ 41 wks Risk for Pre-Eclampsia Daily Dose ASA Indicated: Yes Date Initiated/Initials: 05/20/25 Yes, if one or more: NEGATIVE FOR: Hx Pre-E/Gest HTN, Chronic HTN, Multiple Gestation, Pre-gestational DM, Renal Disease, Systemic Lupus or APA Syndrome Yes, if 2 or more: POSITIVE FOR: Nulliparity and Mother/Sister w/ Pre-E; NEGATIVE FOR: Age>= 35 yrs, >10yr btwn pregnancies, BMI>30, ethinicty or Previous IUGR Risk for Post- Hemorrhage Initial: NEGATIVE FOR: Multiple Gestation, Previous PPH, Known Clotting Deficiency, Grand Multiparity or Anticoagulation 36 Weeks: NEGATIVE FOR: Anemia, hgb<10, Low platelets(thrombocytopenia), Gestational HTN or Pre-E, Polyhydraminios or EFW>4500gms 40 Weeks: NEGATIVE FOR: Anemia, hgb<10, Low platelets (thrombocytopenia), Gestation HTN or Pre-E, Polyhydraminios or EFW>4500gms At Risk?: Yes Interventions: risk d/t induction process at 41 wks Counseled re: Active Management: Yes Risks Reviewed Risks Reviewed Upon Admission: Yes (increased risks d/t primipara, IOL, TWG >40 lb, postdates)
[2024-12-10] MEDS: miSOPROStol 25 MCG TAB 50 MCG PO ×2 (18:23→22:13)
[2024-12-10 19:05] LABS: HCT 31.6 % (36.0-46.0); HGB 10.1 g/dL (11.2-15.7); MCH 29.2 pg (27.0-33.0); MCV 91 fL (80-95); MPV 9.2 fL (8.0-11.0); Platelet Count 299 10^3/uL (130-400); RBC 3.46 10^6/uL (3.93-5.22); RDW 14.8 % (11.7-14.6); WBC 9.44 10^3/uL (4.4-10.8)
[2024-12-10 19:21] LABS: ALT 11 U/L (14-59); AST 14 U/L (15-37); Albumin 2.5 g/dL (3.4-5.0); Alkaline Phosphatase 133 U/L (46-116); Anion Gap 12.7 mmol/L (3-11); BUN 7 mg/dL (7-18); Bilirubin, Total 0.2 mg/dL (0.2-1.0); CO2 23.3 mmol/L (21.0-32.0); CREATININE 0.6 mg/dL (0.55-1.02); Calcium 8.9 mg/dL (8.5-10.1); Chloride 103 mmol/L (98-107); Estimated GFR 127.67 (mL/min/1.73m2); Glucose 126 mg/dL (74-106); Potassium 3.5 mmol/L (3.5-5.1); Sodium 139 mmol/L (136-145); Total Protein 6.6 g/dL (6.4-8.2)
[2024-12-10] MEDS: Acetaminophen 500 MG TAB 1000 MG PO (20:33)
[2024-12-10] MEDS: Zolpidem 5 MG TAB 10 MG PO (22:13)
[2024-12-11] VITALS (42 sets, daily range): BP systolic 93–145; BP diastolic 50–77; PULSE 90–117; RESP 14–16; TEMP 36.5–36.8; O2SAT 96–100; BMI 34.1
[2024-12-11] MEDS: Acetaminophen 500 MG TAB 1000 MG PO ×2 (06:43→13:14)
[2024-12-11] MEDS: miSOPROStol 25 MCG TAB 50 MCG PO ×2 (06:47→11:12)
--- NOTE | 2024-12-11 06:51 | W.PM.OBNL1 ---
Date of service: 12/11/24 Time of Service: 06:57 Informed Consent Informed Consent: Induction of Labor and Risk,Benefits,Alternatives Discussed Pelvic Exam Dilation: 1.5 Effacement (%): 60 station: -3 Cervix Position: mid Consistency: medium Contractions Monitor Mode: External Contraction Frequency(min): q6-7 Intensity: Mild Fetus A Monitor: External (US) Heart Rate Baseline: 140 Variability: Moderate (6-25 BPM) Categories: Category I Decelerations: None Amniotic Membrane Status: Intact Assessment and Plan Assessment and plan (1) Encounter for induction of labor: Status: Acute Assessment and plan: A: cervical ripening in progress, IOL for postdates in primipara Lepe score progressed to 5 P: Continue misoprostel per guidelines Recommended to pt insertion of alba balloon after breakfast Dr. Newberry consulting today Objective Abnormal lab results 12/10/24 Range/Units 18:55 RBC 3.46 L (3.93-5.22) 10^6/uL Hgb 10.1 L (11.2-15.7) g/dL Hct 31.6 L (36.0-46.0) % RDW 14.8 H (11.7-14.6) % Anion Gap 12.7 H (3-11) mmol/L Glucose 126 H (74-106) mg/dL AST 14 L (15-37) U/L ALT 11 L (14-59) U/L Alkaline Phosphatase 133 H (46-116) U/L Albumin 2.5 L (3.4-5.0) g/dL Temp Pulse Resp BP Pulse Ox 97.6 F 96 H 18 101/56 L 96 12/10/24 22:22 12/10/24 22:17 12/10/24 17:07 12/10/24 22:17 12/10/24 22:17 Laboratory Results WBC 9.44 10^3/uL (4.4-10.8) 12/10/24 18:55 RBC 3.46 10^6/uL (3.93-5.22) L 12/10/24 18:55 Hgb 10.1 g/dL (11.2-15.7) L 12/10/24 18:55 Hct 31.6 % (36.0-46.0) L 12/10/24 18:55 MCV 91 fL (80-95) 12/10/24 18:55 MCH 29.2 pg (27.0-33.0) 12/10/24 18:55 MCHC 32.0 % (32.0-36.0) 12/10/24 18:55 RDW 14.8 % (11.7-14.6) H 12/10/24 18:55 Plt Count 299 10^3/uL (130-400) 12/10/24 18:55 MPV 9.2 fL (8.0-11.0) 12/10/24 18:55 Sodium 139 mmol/L (136-145) 12/10/24 18:55 Potassium 3.5 mmol/L (3.5-5.1) 12/10/24 18:55 Chloride 103 mmol/L (98-107) 12/10/24 18:55 Carbon Dioxide 23.3 mmol/L (21.0-32.0) 12/10/24 18:55 Anion Gap 12.7 mmol/L (3-11) H 12/10/24 18:55 BUN 7 mg/dL (7-18) 12/10/24 18:55 Creatinine 0.6 mg/dL (0.55-1.02) 12/10/24 18:55 Est GFR (CKD-EPI 2020) 127.67 (mL/min/1.73m2) 12/10/24 18:55 Glucose 126 mg/dL (74-106) H 12/10/24 18:55 Calcium 8.9 mg/dL (8.5-10.1) 12/10/24 18:55 Total Bilirubin 0.2 mg/dL (0.2-1.0) 12/10/24 18:55 AST 14 U/L (15-37) L 12/10/24 18:55 ALT 11 U/L (14-59) L 12/10/24 18:55 Alkaline Phosphatase 133 U/L (46-116) H 12/10/24 18:55 Total Protein 6.6 g/dL (6.4-8.2) 12/10/24 18:55 Albumin 2.5 g/dL (3.4-5.0) L 12/10/24 18:55 Vital Signs Reviewed: Yes Objective Narrative Objective Narrative: Pt reports lower abd cramping and backache, pink tinge to vaginal mucous Feels increased vaginal wetness but no persistent trickle Slept some during night with Ambien, endorses appetite for breakfast Cervical change noted with improvement in Lepe score to 5 Vital signs nml, normotensive and afebrile
--- NOTE | 2024-12-11 12:39 | W.PM.OBNL1 ---
Date of service: 12/11/24 Time of Service: 12:39 Informed Consent Informed Consent: Induction of Labor and Risk,Benefits,Alternatives Discussed Pelvic Exam Dilation: 1.5 Effacement (%): 75 station: -3 Cervix Position: anterior BISHOPS Score(Cervical Ripeness Score): 7 Pooling: Positive Fer[place]: Present Contractions Monitor Mode: External Contraction Frequency(min): q5-6 Intensity: Mild/Moderate Fetus A Monitor: External (US) Heart Rate Baseline: 140 Variability: Moderate (6-25 BPM) Categories: Category I Accelerations: Present Decelerations: None Amniotic Membrane Status: Ruptured Rupture Method: Spontaneous Amniotic Fluid: Clear Amount: small Date of Membrane Rupture: 12/11/24 Time of Membrane Rupture: 11:00 Assessment and Plan Assessment and plan (1) Encounter for induction of labor: Status: Acute Assessment and plan: A: SROM @ 1100, confirmed, prodromal phase 4th misoprostel 50 mcg given @ 1115 Category 1 tracing, pt appears comfortable P: SROM status and more favorable cvx Begin pitocin augmentation 4 hrs after last miso dose R&B reviewed with pt and she is in agreement with plan of care Anticipate Objective Vital Signs Reviewed: Yes Subjective Interval history since last seen: Pt noticed trickling fluid down her leg when she got up to ambulate to BR @ 1100. Lower abd cramping continues
[2024-12-11] MEDS: Lactated Ringers 1,000 ML 125 ML IV ×2 (16:31→22:23)
[2024-12-11] MEDS: Oxytocin/Normal Saline 30 UNIT/500 ML BAG 2 UNITS IV (16:32)
--- NOTE | 2024-12-11 18:49 | W.PM.OBNL1 ---
Date of service: 12/11/24 Time of Service: 18:49 Informed Consent Informed Consent: Induction of Labor and Risk,Benefits,Alternatives Discussed Pelvic Exam Dilation: 2 Effacement (%): 90 station: -3 Cervix Position: anterior Consistency: medium BISHOPS Score(Cervical Ripeness Score): 7 Contractions Monitor Mode: External Contraction Frequency(min): irregular, ranging q 2 - 5, grouping in 2-4 contractions at a time Intensity: Mild/Moderate Fetus A Monitor: External (US) Heart Rate Baseline: 140 Variability: Moderate (6-25 BPM) Categories: Category I Accelerations: Present Decelerations: None Amniotic Membrane Status: Ruptured Assessment and Plan Assessment and plan (1) Encounter for induction of labor: Status: Acute Assessment and plan: A: inadequate labor, pitocin started at 1645 Lepe score @ 7, category 1 tracing afebrile, normotensive, SROM since 1100 P: Dr. Newberry reviewed tracing Will apply SCD's when pt is in bed Continue pitocin induction per protocol [employer] aware of pt's desire for epidural in active labor Objective Vital Signs Reviewed: Yes Subjective Interval history since last seen: Has been in bed most of the day, ambulates to bathroom, walked around the room for a few minutes. Tolerating oral intake well, voiding qs. Reports upper abd tighteness and lower abd cramping, also backache for which she has requested tylenol. Plans to have an epidural when she is more uncomfortable.
--- NOTE | 2024-12-11 20:36 | ANES.PREOP_ITS ---
General Info Date of Service Date Performed: 12/11/24 Height: 5 ft 5 in Weight: 92.986 kg Body Mass Index (BMI): 34.1 Meds Allergies and Home Medications Allergies Allergy/AdvReac Type Severity Reaction Status Date / Time No Known Allergies Allergy Verified 12/10/24 18:03 Home Medication ?Medication ?Instructions ?Recorded aspirin 81 mg tablet,delayed 162 mg (2 x 81 mg) PO DAILY #60 05/20/24 release tabs vitamin with calcium 1 tab PO DAILY #90 tabs 05/20/24 no.72-iron 27 mg-folic acid 1 mg tablet ferrous sulfate 325 mg (65 mg 325 mg PO DAILY #30 tabs 09/10/24 iron) tablet fluoxetine 10 mg capsule 10 mg PO DAILY #30 caps 11/17/24 Current Visit Medications: Current Medications Generic Name Dose Route Start Last Admin Trade Name Freq PRN Reason Stop Dose Admin Acetaminophen 1,000 mg 12/10/24 20:25 12/11/24 13:14 Acetaminophen 500 Mg Tab PO 1,000 mg Q6H PRN PRN Administration Fentanyl/Ropivacaine 200 ml 12/11/24 20:15 Fentanyl/Ropivacaine 2 Mcg/Ml And 0.1% 200 Ml [place]add Cassette EP DIRECTED VIC Ringer's Solution 1,000 mls @ 125 mls/hr 12/11/24 16:00 12/11/24 16:31 IV 125 mls/hr INFUSION VIC Administration Oxytocin/Sodium Chloride 30 unit in 500 mls @ 2 mls/hr 12/11/24 16:00 12/11/24 19:56 Pitocin/Normal Saline IV 6 milliunits/min INFUSION VIC 6 mls/hr Titration Protocol 2 MILLIUNITS/MIN Ringer's Solution 500 mls @ 500 mls/hr 12/11/24 20:13 IV 12/11/24 21:12 BOLUS ONE IV Miscellaneous Supplies 1 each 12/11/24 16:00 Iv Access IV DIRECTED VIC Misoprostol 50 mcg 12/10/24 16:00 12/11/24 11:12 Misoprostol 25 Mcg Tab PO 50 mcg Q4H VIC Administration Sodium Chloride 0 ml 12/11/24 15:46 Normal Saline Flush 10 Ml Syr IVP PRN PRN Sodium Chloride 0 ml 12/11/24 20:00 Normal Saline Flush 10 Ml Syr IVP BID VIC Sodium Chloride 0 ml 06/06/25 15:46 Normal Saline 10 Ml Vial IJ DIRECTED PRN Terbutaline Sulfate 0.25 mg 12/10/24 14:52 Terbutaline 1 Mg/Ml Vial SC PRN PRN PFSH Active Problems Active Problems: Problem Status Onset Code 41 weeks gestation of Acute O48.0, Z3A.41 Encounter for induction of labor Acute Z34.90 Dali infection Acute B37.9 History of OCD (obsessive compulsive disorder) Acute Z86.59 Hydronephrosis, right Acute N13.30 Anemia affecting Acute O99.019 Tobacco use during Acute O99.330 Back pain affecting Acute O99.891, M54.9 Maternal varicella, non-immune Acute O09.899, Z28.39 Acute Z34.90 Anxiety Chronic 03/19/16 F41.9 Medical History Medical History (Updated 12/10/24 @ 20:58 by Cathy Mcgraw) Right flank pain Recurrent abdominal pain (06/16/15) Fecal urgency (02/02/15) Family history of cardiovascular disease (02/02/15) MATERNAL UNCLE [place] [employer] AGE 35 Family history of celiac disease (02/02/15) Bunion of great toe of left foot Term of fraternal twins, both living Twin A born at 40 weeks. Healthy DEPRESSION OR ANXIETY ANGER ISSUES Surgical History Surgical History Fracture, Closed Treatment Thumb - right Tobacco Smoking/Tobacco Use Status: Current every day Tobacco Type: e-cigarettes Alcohol Alcohol Intake: never Substance Use Substance use: Occasionally Substance use type: marijuana Prental History History 2 2 Para 0 Hx # Term Pregnancies 0 Multiple births 0 Hx # Pregnancies 0 Ectopic pregnancies 0 AB induced 1 Hx Number of Living Children 0 AB spontaneous 0 Vital Signs and Lab Results Vital Signs Most Recent Vital Signs in EMR: Most Recent Vital Signs Temp Pulse Resp BP Pulse Ox 36.7 C 112 H 16 115/73 97 12/11/24 19:24 12/11/24 19:16 12/11/24 15:34 12/11/24 19:16 12/11/24 15:34 Lab Results 12/10/24 18:55 12/10/24 18:55 Blood Type / Crossmatch: 2 No Data to Display Complete Blood Count: 2 White Blood Count 9.44 10^3/uL (4.4-10.8) 12/10/24 18:55 Red Blood Count 3.46 10^6/uL (3.93-5.22) L 12/10/24 18:55 Hemoglobin 10.1 g/dL (11.2-15.7) L 12/10/24 18:55 Hematocrit 31.6 % (36.0-46.0) L 12/10/24 18:55 Platelet Count 299 10^3/uL (130-400) 12/10/24 18:55 Complete Metabolic Panel: 2 Sodium 139 mmol/L (136-145) 12/10/24 18:55 Potassium 3.5 mmol/L (3.5-5.1) 12/10/24 18:55 Chloride 103 mmol/L (98-107) 12/10/24 18:55 Carbon Dioxide 23.3 mmol/L (21.0-32.0) 12/10/24 18:55 BUN 7 mg/dL (7-18) 12/10/24 18:55 Creatinine 0.6 mg/dL (0.55-1.02) 12/10/24 18:55 Est GFR (CKD-EPI 2020) 127.67 (mL/min/1.73m2) 12/10/24 18:55 Calcium 8.9 mg/dL (8.5-10.1) 12/10/24 18:55 Albumin 2.5 g/dL (3.4-5.0) L 12/10/24 18:55 Glucose 126 mg/dL (74-106) H 12/10/24 18:55 Liver Function Panel: 2 Alanine Aminotransferase (ALT/SGPT) 11 U/L (14-59) L 12/10/24 1 8:55 Aspartate Amino Transf (AST/SGOT) 14 U/L (15-37) L 12/10/24 18: 55 Coagulation Panel: 2 No Data to Display Cardiac Panel: 2 No Data to Display Arterial Blood Gas: 2 No Data to Display Venous Blood Gas: 2 No Data to Display Pancreas Panel: 2 No Data to Display Thyroid Panel: 2 No Data to Display Infectious Disease: 2 No Data to Display Blood Cultures: 2 No Data to Display Toxicology Panel: 2 No Data to Display Panel: 2 No Data to Display Anesthesia Assessment and Plan Anesthesia History Personal History: No History of Anesthesia Complications Family History: No Family History of Anesthesia Complications Exercise Tolerance Exercise Tolerance: Metabolic Equivalents>4 Pertinent Negatives Pertinent Negatives: No Symptoms of GERD Cardiac & Pulmonary Exam Cardiac Exam: Normal S1/S2 Heart Sounds Pulmonary Exam: Clear Bilateral Breath Sounds Implantable Cardiac Device Does patient have a Pacemaker or an ICD?: No Airway Exam Known Difficult Airway: No Mallampati Class: 3 Mouth Opening: Normal (> 3cm) Thyromental Distance: Greater than 3 cm Neck Range of Motion: Full ROM Neck Circumference: Normal Teeth Condition: Normal Dentition ASA Classification ASA Score: ASA 2 Emergency Case?: No NPO Status NPO Status: NPO Clears >2 hours, Solids >8 hours Status Status: Confirmed Anesthesia Plan Resuscitation Status: Full Code Anesthesia Technique: Epidural Anesthesia Airway Planned: Natural Airway Pain Management: Epidural (Patient requesting) Monitors Used: Standard Monitors
[2024-12-11] MEDS: FentaNYL/ROPIvacaine 2 mcg/ml and 0.1% 200 ML CADD Cassette EP (20:46)
--- NOTE | 2024-12-11 21:47 | W.ANESNEU ---
Epidural/Spinal Catheter Date Performed: 12/11/24 Procedure Start: 20:57 Procedure Stop: 21:32 Requesting Provider: Cathy Mcgraw Procedure Location: Obstetrics Reason Performed: Labor Epidural Standard Monitors Applied: Blood Pressure, SpO2 and ETCO2 Patient Position: Sitting Sedation Given (Indicate Dose Given): No Sedation given Patient Mental Status: Awake Sterility: Hand Hygiene, Surgical Cap, Surgical Mask, Sterile Gloves, Sterile Drape/Sheet and Chlorhexidine Procedure Location: L3-L4 Interspace Epidural Needle: Tuohy 17 Guage Needle Length: 3.5 Inch Needle Approach: Midline Epidural Procedure: Skin Prepped, Sterile Drape Placed, 1% Lidocaine to skin and subcutaneous tissue with 25G needle, Tuohy Needle placed, ADI to Saline Used, Epidural Catheter Placed, Positive Heme Noted, Negative CSF Flow and Tuohy Needle Removed Catheter Placed?: Catheter Placed Test Dose (Indicate Dose Given): 5ml 1.5% Lidocaine with 1:200K Epinephrine Given, Negative Test Dose (2nd test dose negative. ) and Positive Test Dose (Catheter removed and replaced, same ADI depth, second attempt placed at 15) Loss of Resistance Depth (cm): 9 Catheter depth at skin (cm): 15 Dressing: [place] Dressing Placed, Mastisol Used and Dressing reinforced with Tape Epidural Provider Bolus (Indicate Dose Given): Total bolus dose given in 3-5 ml divided doses and Total Ropivacaine 0.1% with Fentanyl 2mcg/ml Given from pump. (ml) Dose:: 10 ml Additives (Indicate Dose Given ): None Infusion Medication: Medication Infusion Began Medication Infusion: Ropivacaine 0.1% with Fentanyl 2mcg/ml Maintenance Infusion Rate (ml/hour): 10 PCEA Bolus Dose (ml): 5 Block Level: N/A Paresthesia: Left Paresthesia Duration: Transient (to left hip) Ultrasound: Not Used Number of Attempts (See previous attempts in note section): 2 Procedure Tolerated: Patient tolerated well and Complications Encountered (Positive test dose, please see above) Procedure Outcome: Successful Performed By: Rubén Mallory
[2024-12-12] VITALS (135 sets, daily range): BP systolic 94–134; BP diastolic 52–85; PULSE 101–123; RESP 16–18; TEMP 36.7–37.6; O2SAT 95–100
--- NOTE | 2024-12-12 02:31 | W.PM.OBNL1 ---
Date of service: 12/12/24 Time of Service: 02:31 Informed Consent Informed Consent: Induction of Labor, Risk,Benefits,Alternatives Discussed and Other (pt consents to insertion of IUPC) Pelvic Exam Dilation: 4 Effacement (%): 90 station: -2 Cervix Position: mid Consistency: medium BISHOPS Score(Cervical Ripeness Score): 8 Contractions Monitor Mode: Internal Contraction Frequency(min): 4 IUPC resting tone (mmHg): 20 IUPC peak pressure (mmHg): 70 IUPC [place] units: 165 Fetus A Monitor: External (US) Heart Rate Baseline: 145 Variability: Moderate (6-25 BPM) Categories: Category I Accelerations: Present Decelerations: Early Amniotic Membrane Status: Ruptured Assessment and Plan Assessment and plan (1) 41 weeks gestation of : Status: Acute Assessment and plan: A: Effective epidural after complex placement procedure pt has been resting/sleeping, SCD's on, alba in place, Afebrile and normotensive, ROM x16 hrs clear fluid Pitocin at 20 mu/min, cvx 4/90%, vtx -2; category 1 tracing P: Discussed with pt benefits and risks of IUPC insertion, pt consents MVU's range 160-170, pitocin increased to 22 Dr. Newberry inhouse, will titrate for MVU's of 200 up to 30 mu/min Monitor for labor progress Objective Temp Pulse Resp BP Pulse Ox 99.1 F 108 H 16 123/58 L 98 12/12/24 02:04 12/12/24 02:22 12/12/24 02:06 12/12/24 02:22 12/11/24 21:47 Laboratory Results WBC 9.44 10^3/uL (4.4-10.8) 12/10/24 18:55 RBC 3.46 10^6/uL (3.93-5.22) L 12/10/24 18:55 Hgb 10.1 g/dL (11.2-15.7) L 12/10/24 18:55 Hct 31.6 % (36.0-46.0) L 12/10/24 18:55 MCV 91 fL (80-95) 12/10/24 18:55 MCH 29.2 pg (27.0-33.0) 12/10/24 18:55 MCHC 32.0 % (32.0-36.0) 12/10/24 18:55 RDW 14.8 % (11.7-14.6) H 12/10/24 18:55 Plt Count 299 10^3/uL (130-400) 12/10/24 18:55 MPV 9.2 fL (8.0-11.0) 12/10/24 18:55 Sodium 139 mmol/L (136-145) 12/10/24 18:55 Potassium 3.5 mmol/L (3.5-5.1) 12/10/24 18:55 Chloride 103 mmol/L (98-107) 12/10/24 18:55 Carbon Dioxide 23.3 mmol/L (21.0-32.0) 12/10/24 18:55 Anion Gap 12.7 mmol/L (3-11) H 12/10/24 18:55 BUN 7 mg/dL (7-18) 12/10/24 18:55 Creatinine 0.6 mg/dL (0.55-1.02) 12/10/24 18:55 Est GFR (CKD-EPI 2020) 127.67 (mL/min/1.73m2) 12/10/24 18:55 Glucose 126 mg/dL (74-106) H 12/10/24 18:55 Calcium 8.9 mg/dL (8.5-10.1) 12/10/24 18:55 Total Bilirubin 0.2 mg/dL (0.2-1.0) 12/10/24 18:55 AST 14 U/L (15-37) L 12/10/24 18:55 ALT 11 U/L (14-59) L 12/10/24 18:55 Alkaline Phosphatase 133 U/L (46-116) H 12/10/24 18:55 Total Protein 6.6 g/dL (6.4-8.2) 12/10/24 18:55 Albumin 2.5 g/dL (3.4-5.0) L 12/10/24 18:55 Vital Signs Reviewed: Yes Subjective Interval history since last seen: Comfortable with epidural, SCD's on, sleeping between nursing assessments. Pitocin at 20mu/min.
[2024-12-12] MEDS: Calcium Carbonate *TUMS* 500 MG CHEW 1000 MG PO (04:30)
[2024-12-12] MEDS: diphenhydrAMINE 50 MG/ML VIAL 25 MG IVP (04:30)
--- NOTE | 2024-12-12 04:35 | PGE_ITS ---
Date of Service Date of service: 12/12/24 Time of Service: 04:36 Assessment and Plan Assessment and plan (1) Dysfunctional labor: Status: Acute Assessment and plan: 24-year-old -0-1-0 at 41 weeks and 3 days is dated by LMP equal to 7-week ultrasound (MARCIA 12/02/2024). She presented to labor and delivery on the evening of 12/10/2024 for an induction of labor for postdates. Her is complicated by history of anxiety, tobacco vaping, anemia, chronic back pain, right flank pain, and intertrigo below the breasts. She is GBS negative. Starting hgb 10.1, WBC 9.4, platelets 299. She received a series of misoprostol for cervical ripening. Note suggest rupture of membranes to a small amount of clear fluid around 11 AM on 12/11/2024. Pitocin was initiated later the same day around 5 PM. Patient then received epidural sometime between 2029 and 2129. Business Support Liaison states that she checked the patient around 0200 this morning (12/12) and found her to be 4/90/-2/midposit ion/medium; learning manager then wrote for Pitocin to be increased up to a max of 30 mU's. She also placed an IUPC at this time. I was called on 4 AM to join a huddle regarding the management of this patient's labor. The above was recounted. I personally assessed the patient at bedside. She was found resting comfortably in her bed with SCDs on. My own SVE at around 0430 was 4/80/-2/mid/medium. There was some descent of the head and stretch of the cervix with contraction, and the patient did state that she was feeling her contractions, though she was comfortable with her epidural. No con cerning odor or discharge on my glove. A review of the strip over the last several hours reveals a category 1 tracing with contractions inconsistently every 2 to 5 minutes despite Pitocin at 28 mU's. Vital signs are stable and reassuring. I had a discussion with the mother regarding our concerns surrounding her labor pattern. I discussed that I had concerns about her lack of progress since 2 AM and her slow progress up to that point. We discussed potential concerns for the development of infection, albeit, at this time, I do not have immediate concerns for this. We discussed consideration of discontinuing and restarting the Pitocin following a brief break (roughly 30 minutes), and administration of Tums and Benadryl (I opted to avoid propranolol given patient's lower, though appropriate, blood pressures) versus the option to proceed with section. Patient is opposed to the idea of section at this time, and wishes to continue pursuit of vaginal delivery. We discussed risks and benefits of Tums and Benadryl as well as the fact that this is not backed by research but is a commonly used intervention for dysfunctional labor. She was interested in trialing the medications, and they were ordered. We went on to discuss that she has been ruptured for 17 hours at this point, and we agreed that there would be utility in initiating prophylaxis; ampicillin versus penicillin to be started. We discussed initiating the Pitocin at 2 and increasing by 4 every 30 minutes up to 10 when restarting it. We will continue to pursue vaginal delivery for now; patient understands that we will continue to monitor closely, and we will have a low threshold for discussing alternative delivery options such as in the event of any new concerns. Of note, and discussed consideration of a nicotine patch with the learning manager given the patient's history of tobacco use. I will remain in house. Subjective Subjective Interval history since last seen: Called for labor huddle by learning manager given dysfunctional labor pattern. Exam Narrative Exam Narrative: General: Well-nourished female no immediate distress Pulm: No respiratory distress Abdomen: Gravid, soft between contractions, nontender Extremities: Trace edema noted equally bilaterally; SCDs in place Psych: Calm, responsive, appropriate Const General: cooperative and healthy appearing Nutritional Appearance: well nourished Orientation: alert and awake HENLA Head: normocephalic Resp Effort & Inspection: normal respiratory effort GI Inspection: other (without overt distension) Skin General skin exam: no rashes or lesions noted Neuro General: patient alert and patient awake Extrem General: normal to inspection Psych Appearance: well kempt Mental Status: mental status grossly normal Affect: normal affect Objective Last Vital Signs Temp 99.5 F 12/12/24 04:12 Pulse 110 H 12/12/24 04:23 Resp 16 12/12/24 04:09 BP 110/59 L 12/12/24 04:23 Pulse Ox 98 12/11/24 21:47 Time Spent with Patient Time Spent with Patient: 25-34 minutes Time was spent: preparing to see the patient(eg.review tests), obtaining and/or reviewing separately otained hiistory, referring, communicating with other health healthcare economics consultant, indepentently interpreting results, counseling the patient and care coordination
[2024-12-12] MEDS: Penicillin G POT. 5,000,000 UNITS in Normal Saline 100 ML 200 UNITS IVPB (04:57)
[2024-12-12] MEDS: Oxytocin/Normal Saline 30 UNIT/500 ML BAG 4 UNITS IV (05:01)
[2024-12-12] MEDS: Lactated Ringers 1,000 ML 999 ML IV (07:52)
--- NOTE | 2024-12-12 08:12 | PGE_ITS ---
Date of Service Date of service: 12/12/24 Time of Service: 08:00 Assessment and Plan Assessment and plan (1) Dysfunctional labor: Status: Acute Assessment and plan: Patient found laying comfortably on her left side. RN at bedside moving patient to her right. Pitocin at 18'; contractions remain inadequate. RN reports specific gravity of 1.020 with ketones. Baseline has modestly increased to 150's and variability is waxing and waning. Patient remains afebrile, though she has had a couple temps of 99 F. She has completed one dose of Penicillin. I had a long discussion with the patient regarding my concerns for her clinical trend. We have not yet established a consistent labor pattern or seen reassuring cervical change. I again discussed the potential need for . RN suggested trialing a fluid bolus, which is reasonable. Will continue to increase Pitocin in pursuit of adequate contractions. Assuming strip remains stable and overall reassuring, we will plan for repeat check at 11 am (24 hours from rupture). Otherwise, will re-evaluate pending clinical status. Sign out provided to on-coming physician. Subjective Subjective Interval history since last seen: general: Resting comfortably Pulm: No overt respiratory distress Abd: Non-tender SVE: +1 equal bilateral peripheral edema; SCD's in place Affect: Appropriate Objective Last Vital Signs Temp 99.0 F 12/12/24 07:25 Pulse 109 H 12/12/24 08:10 Resp 16 12/12/24 07:25 BP 108/70 12/12/24 08:08 Pulse Ox 97 12/12/24 08:10 Time Spent with Patient Time Spent with Patient: 25-34 minutes Time was spent: preparing to see the patient(eg.review tests), obtaining and/or reviewing separately otained hiistory, ordering medications,tests, procedures, referring, communicating with other health healthcare risk control consultant, indepentently interpreting results, counseling the patient and care coordination
[2024-12-12] MEDS: Penicillin G POT. 3,000,000 UNITS in Normal Saline 50 ML 100 UNITS IVPB ×2 (08:59→13:06)
--- NOTE | 2024-12-12 10:22 | PGE_ITS ---
Date of service: 12/12/24 Time of Service: 10:22 Informed Consent Informed Consent: Induction of Labor and Risk,Benefits,Alternatives Discussed Pelvic Exam Dilation: 6 Effacement (%): 95 station: -2 Cervix Position: mid Consistency: soft BISHOPS Score(Cervical Ripeness Score): 10 Contractions Monitor Mode: Internal Contraction Frequency(min): q2-5 IUPC resting tone (mmHg): 20 IUPC peak pressure (mmHg): 70 IUPC [place] units: 160 Fetus A Monitor: External (US) Heart Rate Baseline: 150 Variability: Moderate (6-25 BPM) Categories: Category I Accelerations: Present Decelerations: None Amniotic Membrane Status: Ruptured Assessment and Plan Assessment and plan (1) Encounter for induction of labor: Status: Acute Assessment and plan: A: Prolonged first stage labor, IOL for postdates, slow progress, minimal descent Has progressed to 6/95%, vtx -2/-3, pitocin back to 30 mu/min since 0900 Category 1, IUPC appears to be working well, MVU's range 125-170 RN changing pt position q2 hrs, SCD and alba in place Normotensive, afebrile, pt resting and pushing SOLAR INSTALLER PV button q 15 min. P: Dr. Esparza consulting and aware of pt status Continue pit at 30 mu/min and PCN q4 hrs Continue to monitor for progress & descent (2) Dysfunctional labor: Status: Acute Objective Temp Pulse Resp BP Pulse Ox 99.0 F 110 H 16 114/66 98 12/12/24 09:10 12/12/24 10:20 12/12/24 08:39 12/12/24 10:20 12/12/24 10:20 Laboratory Results WBC 9.44 10^3/uL (4.4-10.8) 12/10/24 18:55 RBC 3.46 10^6/uL (3.93-5.22) L 12/10/24 18:55 Hgb 10.1 g/dL (11.2-15.7) L 12/10/24 18:55 Hct 31.6 % (36.0-46.0) L 12/10/24 18:55 MCV 91 fL (80-95) 12/10/24 18:55 MCH 29.2 pg (27.0-33.0) 12/10/24 18:55 MCHC 32.0 % (32.0-36.0) 12/10/24 18:55 RDW 14.8 % (11.7-14.6) H 12/10/24 18:55 Plt Count 299 10^3/uL (130-400) 12/10/24 18:55 MPV 9.2 fL (8.0-11.0) 12/10/24 18:55 Sodium 139 mmol/L (136-145) 12/10/24 18:55 Potassium 3.5 mmol/L (3.5-5.1) 12/10/24 18:55 Chloride 103 mmol/L (98-107) 12/10/24 18:55 Carbon Dioxide 23.3 mmol/L (21.0-32.0) 12/10/24 18:55 Anion Gap 12.7 mmol/L (3-11) H 12/10/24 18:55 BUN 7 mg/dL (7-18) 12/10/24 18:55 Creatinine 0.6 mg/dL (0.55-1.02) 12/10/24 18:55 Est GFR (CKD-EPI 2020) 127.67 (mL/min/1.73m2) 12/10/24 18:55 Glucose 126 mg/dL (74-106) H 12/10/24 18:55 Calcium 8.9 mg/dL (8.5-10.1) 12/10/24 18:55 Total Bilirubin 0.2 mg/dL (0.2-1.0) 12/10/24 18:55 AST 14 U/L (15-37) L 12/10/24 18:55 ALT 11 U/L (14-59) L 12/10/24 18:55 Alkaline Phosphatase 133 U/L (46-116) H 12/10/24 18:55 Total Protein 6.6 g/dL (6.4-8.2) 12/10/24 18:55 Albumin 2.5 g/dL (3.4-5.0) L 12/10/24 18:55 Vital Signs Reviewed: Yes Subjective Interval history since last seen: Pt states she is very sleepy and tired. Epidural remains effective, with small window at RLQ that is a bit uncomfortable.
[2024-12-12] MEDS: FentaNYL/ROPIvacaine 2 mcg/ml and 0.1% 200 ML CADD Cassette EP (11:00)
[2024-12-12] MEDS: Lactated Ringers 1,000 ML 125 ML IV (11:39)
--- NOTE | 2024-12-12 12:57 | PGE_ITS ---
Date of service: 12/12/24 Time of Service: 12:57 Informed Consent Informed Consent: Induction of Labor and Risk,Benefits,Alternatives Discussed Pelvic Exam Dilation: 7.5 Effacement (%): 95 station: -2 Cervix Position: mid Consistency: soft Contractions Monitor Mode: Internal IUPC resting tone (mmHg): 20 IUPC peak pressure (mmHg): 70 IUPC [place] units: 170 Fetus A Monitor: External (US) Heart Rate Baseline: 145 Variability: Moderate (6-25 BPM) Categories: Category I Accelerations: 15 X 15 Decelerations: None and Early Amniotic Membrane Status: Ruptured (x26 hrs) Assessment and Plan Assessment and plan (1) Encounter for induction of labor: Status: Acute Assessment and plan: A: Cvx exam 2 hrs after previous exam for 7-8/95%, vtx well applied @ -2 station Category 1 tracing, afebrile, normotensive Pitocin remains @ 30 mu/min P: Updated exam reported to Dr. Esparza Next exam planned for 1445, anticipate full dilation by then w/palpable descent Continue current plan of care Subjective Interval history since last seen: Pt drinking juice, changing positions every 1-2 hrs with RN assitance, pleased with progress to 7-8 cm dilation
[2024-12-12] MEDS: Ondansetron 4 MG/2 ML VIAL IVP (14:45)
--- NOTE | 2024-12-12 15:04 | W.PM.OBNL1 ---
Date of service: 12/12/24 Time of Service: 14:35 Informed Consent Informed Consent: Induction of Labor and Risk,Benefits,Alternatives Discussed Pelvic Exam Dilation: 7.5 station: -2 Contractions Monitor Mode: Internal (IUPC replaced) IUPC [place] units: 90 Fetus A Heart Rate Baseline: 145 Variability: Moderate (6-25 BPM) Categories: Category I Accelerations: Present Decelerations: None Assessment and Plan Assessment and plan (1) Encounter for induction of labor: Status: Acute Assessment and plan: A: RN reduced pit by half due to tachysystole IUPC appeared to be expelling, removed and replaced by CNM Cvx exam not notably changed, 7-8 though very little cvx posteriorly Category 1 tracing overall. periods of minimal variability interspersed with moderate variability Pt appears more uncomfortable, reporting nausea and pain, remains afebrile P: Dr. Esparza en route to evaluate Zofran IV, give 250 ml IV LR bolus Titrate pitocin upwards from 15 mu/min as tolerated Objective Vital Signs Reviewed: Yes Subjective Interval history since last seen: nausea, abd pain, I don't feel very well
--- NOTE | 2024-12-12 15:35 | W.PM.PROGNOT ---
Date of Service Date of service: 12/12/24 Time of Service: 15:35 Subjective Subjective Interval history since last seen: Called to discuss possible C section with patient. She is a Po @41.3wks who has been undergoing an induction for 2 days. She had SROM at 11am 12/12/24. She did not progress into active labor until this am and had very slow progress with Objective Last Vital Signs Temp 98.1 F 12/12/24 14:00 Pulse 110 H 12/12/24 15:19 Resp 16 12/12/24 14:58 BP 131/85 12/12/24 15:11 Pulse Ox 98 12/12/24 15:19
--- NOTE | 2024-12-12 15:43 | W.PM.OBNL1 ---
Date of service: 12/12/24 Time of Service: 15:43 Informed Consent Informed Consent: Induction of Labor and Risk,Benefits,Alternatives Discussed Pelvic Exam Dilation: 7.5 Effacement (%): 80 station: -2 Comments: Exam by welder setter electron beam machine - see note for full details. Fetus A Heart Rate Baseline: 140 Presentation: Vertex Variability: Moderate (6-25 BPM) Categories: Category I Accelerations: 15 X 15 Decelerations: None Amniotic Membrane Status: Ruptured Assessment and Plan Assessment and plan (1) Arrested labor: Status: Acute Assessment and plan: Debbie is a Po @41.3wks who has been undergoing an induction for 2 days. She had SROM at 11am 12/12/24. She did not progress into active labor until this am and had very slow progress with dilation stalled at ~7cm for >2hrs with pitocin at 30 for >5hrs. There has also not been any significant descent of the head over the course of labor. Therefore it is determined that she is experiencing arrest of labor and we discussed the option for a C section. She is definitely interested with proceeding at this point. We reviewed what to expect during the procedure and the risks including infection, bleeding, painful recovery, injury to nearby organs such as the bowel or bladder. All her questions were answered and consent was signed. Appropriate personnel were contacted. (2) 41 weeks gestation of : Status: Acute (3) Encounter for induction of labor: Status: Acute Objective Temp Pulse Resp BP Pulse Ox 98.6 F 110 H 16 131/85 98 12/12/24 14:59 12/12/24 15:19 12/12/24 14:59 12/12/24 15:11 12/12/24 15:19 Laboratory Results WBC 9.44 10^3/uL (4.4-10.8) 12/10/24 18:55 RBC 3.46 10^6/uL (3.93-5.22) L 12/10/24 18:55 Hgb 10.1 g/dL (11.2-15.7) L 12/10/24 18:55 Hct 31.6 % (36.0-46.0) L 12/10/24 18:55 MCV 91 fL (80-95) 12/10/24 18:55 MCH 29.2 pg (27.0-33.0) 12/10/24 18:55 MCHC 32.0 % (32.0-36.0) 12/10/24 18:55 RDW 14.8 % (11.7-14.6) H 12/10/24 18:55 Plt Count 299 10^3/uL (130-400) 12/10/24 18:55 MPV 9.2 fL (8.0-11.0) 12/10/24 18:55 Sodium 139 mmol/L (136-145) 12/10/24 18:55 Potassium 3.5 mmol/L (3.5-5.1) 12/10/24 18:55 Chloride 103 mmol/L (98-107) 12/10/24 18:55 Carbon Dioxide 23.3 mmol/L (21.0-32.0) 12/10/24 18:55 Anion Gap 12.7 mmol/L (3-11) H 12/10/24 18:55 BUN 7 mg/dL (7-18) 12/10/24 18:55 Creatinine 0.6 mg/dL (0.55-1.02) 12/10/24 18:55 Est GFR (CKD-EPI 2020) 127.67 (mL/min/1.73m2) 12/10/24 18:55 Glucose 126 mg/dL (74-106) H 12/10/24 18:55 Calcium 8.9 mg/dL (8.5-10.1) 12/10/24 18:55 Total Bilirubin 0.2 mg/dL (0.2-1.0) 12/10/24 18:55 AST 14 U/L (15-37) L 12/10/24 18:55 ALT 11 U/L (14-59) L 12/10/24 18:55 Alkaline Phosphatase 133 U/L (46-116) H 12/10/24 18:55 Total Protein 6.6 g/dL (6.4-8.2) 12/10/24 18:55 Albumin 2.5 g/dL (3.4-5.0) L 12/10/24 18:55 Vital Signs Reviewed: Yes Subjective Interval history since last seen: Called to discuss possible C section with patient. She is a Po @41.3wks who has been undergoing an induction for 2 days. She had SROM at 11am 6/25. She did not progress into active labor until this am and had very slow progress with dilation stalled at ~7cm for >2hrs with pitocin at 30 for >5hrs. There has also not been any significant descent of the head over the course of labor. The patient's epidural is wearing off at this point and she is becoming quite uncomfortable. Results Hemoglobin/Hematocrit: Hgb 10.1 g/dL (11.2-15.7) L 12/10/24 18:55 Hct 31.6 % (36.0-46.0) L 12/10/24 18:55 Abnormal Lab Findings: Abnormal Labs 12/10/24 18:55 RBC 3.46 L Hgb 10.1 L Hct 31.6 L RDW 14.8 H Anion Gap 12.7 H Glucose 126 H AST 14 L ALT 11 L Alkaline Phosphatase 133 H Albumin 2.5 L
[2024-12-12] MEDS: AZITHROMYCIN 500 MG in Normal Saline 250 ML 250 MG IVPB (15:52)
[2024-12-12] MEDS: Bupivacaine 0.25% Pres-Free 30 ML VIAL (16:35)
[2024-12-12] MEDS: ceFAZolin 2 GM/50 ML BAG IVPB (16:43)
--- NOTE | 2024-12-12 16:50 | PLAC_PTH ---
PATIENT: Debbie Juan V LOC: OBS U#:[id number] AGE/SX: 24/F ROOM: OBS.301 RE12/10/[address]: Cathy Mcgraw CNM : 2000 BED: A DIS: 12/14/2024 SPEC #: [id number] RECD: 12/14/24 12:51 STATUS: MASOOD REQ #: [id number] FANI: 12/12/24 16:[address]: Cathy Mcgraw DEPT: Surgical Specimen RECD BY: Radha Leger ENTERED: 12/14/24 12:51 SP TYPE: PLAC OTHR DR: Unknown,Unknown Tissues: 1 - PLACENTA (3RD TRIMESTER) Procedures: GROSS AND MICRO LEVEL 5 Comments: [id number]
--- NOTE | 2024-12-12 17:35 | ROE_ITS ---
Operative Note Operative Note PRE-OP DIAGNOSIS: IUP @41.3wks, arrest of labor POST-OP DIAGNOSIS: same PROCEDURE: Primary Section SURGEON: Torie Esparza ASSISTING SURGEON: Anna Khan Refer to Anesthesia Record ESTIMATED BLOOD LOSS: 600 PATHOLOGY: other (placenta) COMPLICATIONS: None Patient was transported to: floor Patient's condition: stable Indications: Debbie is a P0 @41.3wks who underwent an induction for 2 days. S/p SROM >24hrs. Dilation stalled at ~7cm for >2hrs with pitocin at 30 for >5hrs. There has also not been any significant descent of the head over the course of labor. Pt was given the option for delivery due to arrest of labor and she was interested in this plan. Findings: Normal appearing uterus, ovaries and tubes. Female infant, apgars Procedure Description: After informed consent was signed the patient was taken to the operating room. She was given spinal anesthesia, SCDs were placed on her legs and a alba catheter was already in her bladder. The heart rate was checked and was normal. She underwent abdominal and vaginal prep and was draped in the dorsal supine position with a leftward tilt. The patient was tested and spinal anesthesia was found to be adequate. A time out was performed. The skin was injected with bupivocaine along the length of the planned incision. A skin incision was made with the scalpel and carried down to the underlying layer of fascia with blunt dissection. The fascia was incised on either side of the midline and the fascial incision extended laterally with a combination of sharp and blunt dissection. The inferior edge of the fascia was grasped with lizy clamps and tented up and dissected down with a combination of sharp and blunt dissection. Then the superior edge of the fascial incision was grasped with lizy clamps and tented up and dissected down with a combination of sharp and blunt dissection. The rectus muscles were in the midline and the peritoneum was entered bluntly. The peritoneal incision was extended laterally with blunt dissection. The bladder blade was inserted. A transverse incision was made in the lower uterine segment with the scalpel. The incision was extended superiorly and inferiorly with blunt pressure. The infants head delivered with fundal pressure followed by the shoulders and the rest of the body. The baby was vigorous and cried spontaneously at delivery. The cord was milked toward the baby and after 1min it was clamped x2 and cut. The baby was handed to the claims processor. Cord blood was collected. The placenta delivered with fundal massage and gentle cord traction and appeared to be intact. The uterus was exteriorized and cleared of clots and debris. The uterine incision was closed with 0-vicryl in a running locked fashion with a second layer of suture imbricating the first. Good hemostasis was noted. However, the left side of the uterus felt boggy so it was injected with 10U of pitocin in 1ml saline with resulting improvement in tone. The uterus was placed back into the abdominal cavity. Clots were cleared from the peritoneal cavity with lap sponges. The incision was inspected once again and good hemostasis was noted. There was good hemostasis of the rectus muscles. The fascia was closed with 0- vicryl in a running unlocked fashion. The subcuticular layer was irrigated and closed with interrupted sutures of 3-0 vicryl. The skin was closed with 4-0 vicryl in a running subcuticular fashion. The incision was cleaned. Mastisol and steristrips were placed. A dressing was placed. The fundus was palpated to be firm. The patient was moved to the stretcher and taken to the recovery room in stable condition. Date of Procedure: 12/12/24
[2024-12-12] MEDS: Lactated Ringers 1,000 ML 1000 ML IV (20:50)
[2024-12-12] MEDS: Ketorolac 30 MG/ML VIAL IVP ×2 (21:14→23:28)
[2024-12-13] VITALS (14 sets, daily range): BP systolic 90–120; BP diastolic 43–72; PULSE 80–100; RESP 14–18; TEMP 36.6–36.9; O2SAT 99
[2024-12-13] MEDS: Acetaminophen 325 MG TAB 650 MG PO ×4 (04:41→21:15)
[2024-12-13] MEDS: Ketorolac 30 MG/ML VIAL IVP ×2 (05:36→11:27)
[2024-12-13] MEDS: Lactated Ringers 1,000 ML 125 ML IV (06:06)
[2024-12-13 09:13] LABS: HCT 22.5 % (36.0-46.0); HGB 7.3 g/dL (11.2-15.7); MCH 29.7 pg (27.0-33.0); MCHC 32.4 % (32.0-36.0); MCV 92 fL (80-95); MPV 9.3 fL (8.0-11.0); Platelet Count 250 10^3/uL (130-400); RBC 2.46 10^6/uL (3.93-5.22); RDW 14.8 % (11.7-14.6); WBC 11.19 10^3/uL (4.4-10.8)
--- NOTE | 2024-12-13 10:38 | W.PM.OBPNV1 ---
Date of service: 12/13/24 Time of Service: 10:38 Assessment and Plan Assessment and plan (1) care and examination immediately after delivery: Status: Acute Assessment and plan: 24yo P1 POD#1 s/p PCS for arrest of labor. Started on abx @18hrs s/p rupture though no e/o chorioamnionitis. CS uncomplicated though pt with slightly increased bleeding immediately after the CS. This slowed down to normal overnight. Despite a 3 point drop in Hb, she denies s/s and is ambulating without issues. Repeat CBC in am. Will consider iron infusion. Encourage ambulation as comfortable. Subjective Subjective Narrative: Pt is doing well overall. Minimal lochia this am. Ambulating without dizziness or feeling light headed. Tolerating PO. Vaughn still in place but to be removed shortly. Baby has had a lot of mucus and therefore hasn't latched well but mom pumped this am. She is looking forward to getting up a taking a shower. Exam Physical Exam Vital signs: Temp Pulse Resp BP Pulse Ox 98.0 F 80 18 101/54 L 99 12/13/24 07:57 12/13/24 07:57 12/13/24 08:00 12/13/24 07:57 12/13/24 07:57 Vital Signs Reviewed: Yes Constitutional Constitutional: no acute distress and cooperative Detailed HEENT Exam Head: Present normocephalic and atraumatic Respiratory Exam Respiratory Exam: Normal Abdominal Exam Abdomen: Tender (mildly) Comments: Dressing clean & dry Fundal Exam Fundus: Below Umbilicus and Firm Extremities Exam Extremity Exam: Edema (trace) Detailed Neurological Exam Neurological: Present alert, oriented X3 and CN II-XII intact Results Hemoglobin/Hematocrit: Hgb 7.3 g/dL (11.2-15.7) L D 12/13/24 09:02 Hct 22.5 % (36.0-46.0) L 12/13/24 09:02 Abnormal Lab Findings: Abnormal Labs 12/10/24 12/13/24 18:55 09:02 WBC 11.19 H RBC 3.46 L 2.46 L Hgb 10.1 L 7.3 L D Hct 31.6 L 22.5 L RDW 14.8 H 14.8 H Anion Gap 12.7 H Glucose 126 H AST 14 L ALT 11 L Alkaline Phosphatase 133 H Albumin 2.5 L
[2024-12-13] MEDS: Docusate Sodium 100 MG CAP PO (11:25)
[2024-12-13] MEDS: Normal Saline Flush 10 ML SYR IVP (11:28)
--- NOTE | 2024-12-13 12:57 | W.ANESPOSTOP ---
Postoperative Evaluation Date, Time and Location Date Performed: 12/13/24 Time Performed: 13:15 Patient Location: Obstetrics Vital Signs Most Recent Imported Vital Signs: Most Recent Vital Signs Temp Pulse Resp BP Pulse Ox 36.7 C 80 18 101/54 L 99 12/13/24 07:57 12/13/24 07:57 12/13/24 11:57 12/13/24 07:57 12/13/24 07:57 Pain Score Most Recent Pain Score: Most Recent Pain Score Pain Level [Lower Abdomen] 2 12/13/24 07:57 Pain Level 3 12/13/24 11:57 Assessment Mental Status: Awake (Alert & Oriented to Patient Baseline) Airway and Respiratory Function: Patent airway with normal (patient baseline) respiratory exam Cardiovascular Function: Hemodynamically Stable Hydration Status: Adequately Hydrated Nausea & Vomiting: No Nausea or Vomiting Pain: Pt. Denies Any Pain Peripheral Nerve Block: Other (Epidural and spinal appropriately resolved, denying complaint, denying headache, denying backpain. Catheter removed with tip intact during . )
[2024-12-13] MEDS: Ibuprofen 600 MG TAB PO ×2 (18:12→23:31)
[2024-12-14] MEDS: Acetaminophen 325 MG TAB 650 MG PO ×2 (01:40→05:35)
[2024-12-14 04:40] VITALS: BP 108/72; PULSE 90; RESP 14; TEMP 36.5; O2SAT 99
[2024-12-14] MEDS: Ibuprofen 600 MG TAB PO (05:35)
[2024-12-14 06:40] LABS: Abs Immature Grans 0.04 10^3/uL (0.0-0.06); Absolute Basophil Count 0.01 10^3/uL (0.0-0.2); Absolute Eosinophil Count 0.14 10^3/uL (0.0-0.7); Absolute Lymphocyte Count 1.63 10^3/uL (1.2-3.4); Absolute Monocyte Count 0.79 10^3/uL (0.1-0.8); Absolute Neutrophil Count 6.17 10^3/uL (1.2-6.7); Basophils % 0.1 %; Eosinophils % 1.6 %; HCT 22.9 % (36.0-46.0); HGB 7.2 g/dL (11.2-15.7); Immature Grans % 0.5 %; Lymphocytes % 18.6 %; MCH 28.9 pg (27.0-33.0); MCHC 31.4 % (32.0-36.0); MCV 92 fL (80-95); MPV 9.5 fL (8.0-11.0); Neutrophils % 70.2 %; Platelet Count 258 10^3/uL (130-400); RBC 2.49 10^6/uL (3.93-5.22); RDW 14.7 % (11.7-14.6); RDW-SD 50.4 fL; WBC 8.78 10^3/uL (4.4-10.8)
[2024-12-14 08:00] VITALS: BP 107/63; PULSE 78; RESP 14; TEMP 36.7
--- NOTE | 2024-12-14 13:02 | DSE_ITS ---
Date of service: 12/14/24 Time of Service: 13:02 DS: Diagnosis Discharge Diagnosis (1) care and examination immediately after delivery: Status: Acute Asessment and Plan: POD#2 s/p PCS for labor arrest. Pt is doing well. Routine care. She thinks she would like to use a pill for contraception. Routine discharge instructions reviewed. No lifting >20lbs. Nothing in the vagina. Reasons to call include: increasing bleeding or pain that persists with rest, fever of unknown reason, calf tenderness/lesion, mood concerns, breast feeding concerns, leaking from incision. She will f/u on December 23 for incision check. Discharge Plan Disposition Patient Disposition: Home Condition: Good Discharge Details Reason For Visit: induction for post dates Admit Date/Time: 12/10/24 14:52 Admit Provider: Cathy Mcgraw Attending Provider: Cathy Mcgraw Primary Care Provider: Carlos,Unknown Hospital Course Hospital Course: 24yo P0 admitted at 41.1wks for postdates induction. She received misoprostol followed by spontaneous rupture of membranes, then pitocin initiation. She received at epidural at about 4cm and had an IUPC placed. Pitocin was increased to 30 MVUs and she eventually progress to 7cm but experienced arrest of labor and consented to a PCS. She underwent an uncomplicated C section with delivery of a healthy female infant, Alex. She had moderate bleeding for a few hours post delivery but this resolved without extra medication. She was found to be anemic with a Hb of 7.3 (down from 10.1 pre-delivery and 9.3 earlier in ) and therefore received an iron infusion prior to d/c. She was dis charged on POD#2. Home Meds and New Rx's Prescriptions: No Action aspirin 81 mg tablet,delayed release (DR/EC) 162 mg PO DAILY Qty: 60 7RF PNV,calcium [id number] acid 27 mg iron- 1 mg tablet 1 tab PO DAILY Qty: 90 5RF Rx Instructions: give with food (meal/snack) fluoxetine 10 mg capsule 10 mg PO DAILY Qty: 30 3RF ferrous sulfate 325 mg (65 mg iron) tablet 325 mg PO DAILY Qty: 30 4RF Discharge Instructions Stand Alone Forms: BC Discharge Instruc Activity:: Nothing in the vagina Equipment/Supplies:: No Equipment Needed Diet:: As Tolerated Discharge Orders Discharge Orders: Discharge Order (Routine); Ordered 12/14/24 Ordered By: Torie Esparza OB:DS Summary Summary Episiotomy Description: None Laceration Description: None Contraception Discussed Contraception Discussed: Yes Contraceptive Plan: Control Pill/Patch, [place] Gender-Baby A: Female weight: 8 lb 6.217 oz Status at Discharge Functional status at discharge: independent ambulation Overall status at discharge: patient is back to baseline Mental Status: mental status grossly normal Speech and Movement: speech and movement normal Mood: congruent mood Affect: normal affect Quality:SDOH Health Related Social Needs: Health related social needs details N/A Health related social needs details: N/A Referrals and interventions: N/A Exam Physical Exam Vital signs: Temp Pulse Resp BP Pulse Ox 98.1 F 78 14 107/63 99 12/14/24 08:00 12/14/24 08:00 12/14/24 08:00 12/14/24 08:00 12/14/24 04:40 Vital Signs Reviewed: Yes Constitutional Constitutional: no acute distress and cooperative Detailed HEENT Exam Head: Present normocephalic and atraumatic Respiratory Exam Respiratory Exam: Normal Abdominal Exam Abdomen: Tender (mildly) Comments: Dressing clean, dry Fundal Exam Fundus: Below Umbilicus and Firm Extremities Exam Extremity Exam: Edema (trace) Detailed Neurological Exam Neurological: Present alert, oriented X3 and CN II-XII intact PFSH All Active Problems (Updated 12/13/24 @ 10:41 by Torie Esparza MD) care and examination immediately after delivery (Acute) Dali infection (Acute) of skin in breast area History of OCD (obsessive compulsive disorder) (Acute) Per Pt (not formally Dx) Need to rule out. Hydronephrosis, right (Acute) Anemia affecting (Acute) Anxiety (Chronic 03/19/16) Per Pt- Dx'd as a child - unsure who dx'd this. Medical History (Updated 12/13/24 @ 10:41 by Torie Esparza MD) Tobacco use during Maternal varicella, non-immune Arrested labor Right flank pain Recurrent abdominal pain (06/16/15) Fecal urgency (02/02/15) Family history of celiac disease (02/02/15) Family history of cardiovascular disease (02/02/15) MATERNAL UNCLE [place] AND [place] BY-PASS AGE 35 Bunion of great toe of left foot Term of fraternal twins, both living Twin A born at 40 weeks. Healthy DEPRESSION OR ANXIETY ANGER ISSUES Surgical History Fracture, Closed Treatment Thumb - right Family History (Updated 11/24/24 @ 15:35 by Chica Olsen CNM) Mother Mental disorder DEPRESSION OR ANXIETY Heart disease [place] age 58 Diabetes Gestational diabetes Anxiety Father Mental disorder DEPRESSION OR ANXIETY Celiac disease [place] Substance abuse Mental disorder DEPRESSION OR ANXIETY Grandparent Mental disorder MGF Other Myocardial infarction [place] + Tri[place] bypass < age 50 Maternal Uncle Heart disease [place] age 35 Kidney stones Maternal Grandmother Diabetes Stroke Kidney disease Sister Pre-eclampsia affecting childbirth Sister Celiac disease Brother Alcohol use disorder Substance use disorder Social History (Updated 04/15/24 @ 11:37 by Kyra Riley NP) Smoking/Tobacco Use Status: Current every day Tobacco Type: e-cigarettes Tobacco: How many years used: 3 Smoking risk assessment performed?: Yes Alcohol Intake: never Drug use: Occasionally Substance use type: marijuana Housing: house Do you feel safe at home: Yes Do you feel safe in your relationship?: Yes History History 2 Para 0 Hx # Term Pregnancies 0 Multiple births 0 Hx # Pregnancies 0 Ectopic pregnancies 0 AB induced 1 Hx Number of Living Children 0 AB spontaneous 0 DS: Data Vitals/I&O Vitals and I&O: Vital Signs Temperature 98.1 F 12/14/24 08:00 Temperature Source Oral 12/14/24 08:00 Pulse 78 12/14/24 08:00 Pulse Rhythm Regular 12/14/24 08:00 Respiratory Rate 14 12/14/24 08:00 Respiratory Depth Normal 12/13/24 21:18 Blood Pressure 107/63 12/14/24 08:00 Blood Pressure Mean 77 12/14/24 08:00 Pulse Oximetry 99 12/14/24 04:40 Oxygen Delivery Method Room Air 12/10/24 17:07 Oxygen Flow Rate 0 12/10/24 17:07 Pain Level 4 12/13/24 18:12 Comment sitting up in bed, denies dizziness or nausea 12/13/24 07:23 Intake & Output 12/13/24 12/14/24 12/14/24 23:59 11:59 23:59 Intake Total 766.667 / 1216.667 Output Total 1100 / 1500 Balance -333.333 / -283.333 Intake: IV 766.667 / 766.667 Output: Urine 1100 / 1250 Other: Urine Color Yellow Urine Appearance Clear Data Completed and Pending Labs on day of discharge: Labs from last 24 hours 12/14/24 06:00 WBC 8.78 RBC 2.49 L Hgb 7.2 L Hct 22.9 L MCV 92 MCH 28.9 MCHC 31.4 L RDW 14.7 H Plt Count 258 MPV 9.5 Immature Gran % 0.5 Neutrophils % 70.2 Lymphocytes % 18.6 Monocytes % 9.0 Eosinophils % 1.6 Basophils % 0.1 Nucleated RBC % 0.0 Absolute Neutrophils 6.17 Absolute Lymphocytes 1.63 Absolute Monocytes 0.79 Absolute Eosinophils 0.14 Absolute Basophils 0.01
[2024-12-14] MEDS: IRON SUCROSE COMPLEX 200 MG in Normal Saline 100 ML 400 MG IVPB (13:09)
== END 2024-12-14 14:35 | disposition home or self-care (01) | DRG 787 ==
PROVIDERS: Obstetrics & Gynecology; Admitting Provider Advanced Practice Midwife; Visit Provider Advanced Practice Midwife
PROC: 10D00Z1 Extraction of Products of Conception, Low, Open Approach (ICD-10-PCS; CPT 59514; principal; 2024-12-12 16:00)
DX: O48.0 Post-term pregnancy (principal); N13.30 Unspecified hydronephrosis; O98.82 Other maternal infectious and parasitic diseases complicating childbirth; Z37.0 Single live birth; Z3A.41 41 weeks gestation of pregnancy; O99.334 Smoking (tobacco) complicating childbirth; O99.344 Other mental disorders complicating childbirth; F41.9 Anxiety disorder, unspecified; O99.02 Anemia complicating childbirth; D64.9 Anemia, unspecified; O99.892 Other specified diseases and conditions complicating childbirth; B37.2 Candidiasis of skin and nail; O61.0 Failed medical induction of labor; O63.0 Prolonged first stage (of labor); O32.4XX0 Maternal care for high head at term, not applicable or unspecified; F17.290 Nicotine dependence, other tobacco product, uncomplicated
CPT/HCPCS: 59514; 36415; 80053; 85027; 59200; 85025; 88307; J0131; J0456; J0665; J0690; J1200; J1756; J1885; J2274; J2371; J2405; J2540; J2590; J3010; J3490

== ENCOUNTER 2025-02-16 17:26 | Emergency (ER) | payer MEDICAID, SELFPAY ==
[2025-02-16 17:27] VITALS: BP 128/78; PULSE 92; RESP 16; TEMP 36.7; O2SAT 98
--- NOTE | 2025-02-16 17:40 | W.ED.GENAD ---
Discharge Plan Disposition Patient Disposition: Home Condition: Stable Discharge Details Clinical Impression: Sciatica Primary Care Provider: Unknown,Unknown ED Provider: Jez Cheng Home Meds and New Rx's Prescriptions: New ketorolac 10 mg tablet 10 mg PO QID PRNQty: 20 0RF Rx Instructions: maximum total duration of 5 days from all oral, intranasal, or parenteral formulations cyclobenzaprine 10 mg tablet 10 mg PO TID PRNQty: 30 0RF Continued levonorgestrel-ethinyl estrad [Marlissa (28)] 0.15-0.03 mg tablet 1 tab PO DAILY Qty: 28 12RF ferrous sulfate 325 mg (65 mg iron) tablet 325 mg PO DAILY Qty: 30 4RF cholecalciferol (vitamin D3) 50 mcg (2,000 unit) capsule 50 mcg PO DAILY Qty: 30 4RF acetaminophen 500 mg capsule 1,000 mg PO Q6H PRN ibuprofen [Advil] 200 mg tablet 600 mg PO Q6H PRN Discharge Instructions Instructions: Ketorolac (Systemic), Cyclobenzaprine, Sciatica ED Additional Instructions: You were seen in the emergency department for your acute sciatica. Please take 1000 mg of Tylenol every 6 hours or 4 times per day, take the prescribed ketorolac care home between Tylenol doses also 4 times a day for 5 days-then substitute this medicine out for 400 mg of ibuprofen going forward. Take the prescribed muscle relaxer cyclobenzaprine 3 times per day as needed for muscle relaxation, apply heat and ice to the area, apply an [id number] lidocaine patch to the area each day for 12 hours, this is sometimes better to do while asleep. Follow-up with the physical therapy referral, please return for any severe increase in back pain with fever, numbness to the genitals, urinary retention or bowel incontinence. Stand Alone Forms: Physical Therapy Referral Discharge Data Discharge Date/Time-TO BE ENTERED AT DEPARTURE: 02/16/25 18:27 HPI General Date/Time Provider Initiated Documentation: 02/16/25 17:37. HPI Narrative: 24 year-old male presents to ED today by POV/ambulating with a chief complaint of acute on chronic low back pain, R paraspinal with radiation down R leg intermittently with onset over the past few weeks. Quality described as shooting pains, difficult to localize sometimes, no radiation to urinary retention, bowel incontinence, fever, nausea/vomiting, saddle anesthesia. Severity is described as moderate. Palliating factors include nothing specific- tried heating packs. Provoking factors include nothing specific. Patient not anticoagulated. Related Data Home Medications ?Medication ?Instructions ?Recorded ?Confirmed cholecalciferol (vitamin D3) 50 50 mcg PO DAILY #30 caps 01/25/25 02/16/25 mcg (2,000 unit) capsule ferrous sulfate 325 mg (65 mg 325 mg PO DAILY #30 tabs 01/25/25 02/16/25 iron) tablet levonorgestrel 0.15 mg-ethinyl 1 tab PO DAILY Contraception #28 01/25/25 02/16/25 estradiol 0.03 mg tablet (Marlissa tabs (28)) acetaminophen 500 mg capsule 1,000 mg PO Q6H PRN 02/16/25 02/16/25 cyclobenzaprine 10 mg tablet 10 mg PO TID PRN #30 tabs 02/16/25 ibuprofen 200 mg tablet (Advil) 600 mg PO Q6H PRN 02/16/25 02/16/25 ketorolac 10 mg tablet 10 mg PO QID PRN #20 tabs 02/16/25 Previous Rx's ?Medication ?Instructions ?Recorded cholecalciferol (vitamin D3) 50 50 mcg PO DAILY #30 caps 01/25/25 mcg (2,000 unit) capsule ferrous sulfate 325 mg (65 mg 325 mg PO DAILY #30 tabs 01/25/25 iron) tablet levonorgestrel 0.15 mg-ethinyl 1 tab PO DAILY Contraception #28 01/25/25 estradiol 0.03 mg tablet (Marlissa tabs (28)) cyclobenzaprine 10 mg tablet 10 mg PO TID PRN #30 tabs 02/16/25 ketorolac 10 mg tablet 10 mg PO QID PRN #20 tabs 02/16/25 Allergies Allergy/AdvReac Type Severity Reaction Status Date / Time No Known Allergies Allergy Verified 02/16/25 17:32 General Stated Complaint: Nk/Back Pain BAUTISTA: 4 Review of Systems All systems reviewed & are unremarkable except as noted in HPI and below Exam Narrative Exam Narrative: GENERAL APPEARANCE: Well-nourished, non-toxic, awake and alert, atraumatic, no acute distress. SKIN: Warm, pink, dry, intact, without rashes/lesions/ulcerations. HEAD: Normocephalic, atraumatic, normal hair distribution for gender/age. EYES: Normal conjunctiva, no exudates on lids/lashes. ENT: Nares patent, no circumoral cyanosis, no facial swelling NECK: Supple, trachea midline, painless cervical ROM. LUNGS/CHEST: Non-labored respirations, normal A/P diameter, symmetrical expansion, no chest wall deformity HEART (CV/PV): No peripheral edema, no JVD. ABDOMEN: Soft, non-distended, no guarding. MSK: Normal ROM, no swelling/deformity to bilateral UEs or LEs, moving all extremities without weakness, no cyanosis, spine midline without tenderness- has tenderness to R paraspinal lumbar region, no saddle anesthesia, normal curvature. NEURO: Mental Status AAOx4 - alert to person, place, time, events No facial droop, no forehead involvement. Motor: No focal weakness - strength 5/5 in bilateral UEs and LEs, proximal and distal, symmetric. Sensory: sensation intact to light touch globally. Gait normal: patient ambulated without ataxia into ED room. PSYCH: euthymic, cooperative, pleasant, appropriate speech Course Vital Signs Vital signs: Vital Signs Temperature 36.7 C 02/16/25 17:27 Pulse 92 H 02/16/25 17:27 Respiratory Rate 16 02/16/25 17:27 Blood Pressure 128/78 02/16/25 17:27 Pulse Oximetry 98 02/16/25 17:27 Temperature 36.7 C 02/16/25 17:27 Temperature Source Oral 02/16/25 17:27 Pulse 92 H 02/16/25 17:27 Respiratory Rate 16 02/16/25 17:27 Blood Pressure 128/78 02/16/25 17:27 Pulse Oximetry 98 02/16/25 17:27 Oxygen Delivery Method Room Air 02/16/25 17:27 Oxygen Flow Rate 0 02/16/25 17:27 Pain Level 8 02/16/25 17:27 Medical Decision Making This dictation utilizes [id number] dictation software and may contain unedited grammatical errors. 24 year-old male presents to ED today by POV/ambulating with a chief complaint of acute on chronic low back pain, R paraspinal with radiation down R leg intermittently with onset over the past few weeks. Quality described as shooting pains, difficult to localize sometimes, no radiation to urinary retention, bowel incontinence, fever, nausea/vomiting, saddle anesthesia. Severity is described as moderate. Palliating factors include nothing specific- tried heating packs. Provoking factors include nothing specific. Patients' medical history: Noncontributory. Family and social history: Recently stopped breast-feeding about a month ago. Pertinent exam findings / vital signs include R paraspinal lumbar tenderness, no weakness to R LE, no saddle anesthesia, strength 5/5, no crepitus or midline vertebral tenderness. Differential / pathologies of concern include sciatica, sacroilitis. Diagnostic studies of: -None. Interventions of: -1g PO APAP, 30mg IM ketorolac, LidoDerm TOP, 2mg PO Valium - patient is not driving home. ED Course/Assessment/Plan: 24-year-old female presents with acute on chronic low back pain with radicular symptoms down the right leg intermittently worse for the past few weeks, no signs of cauda equina, no myelopathy of the lower extremities, no back pain with fever, counseled on therapeutic dosing of Tylenol and NSAIDs, Lidoderm topical, given 1 dose of Valium for muscle relaxation with good effect patient felt better. Strict return criteria for any worsening recommend outpatient physical therapy. Findings not consistent with cauda equina, STEVEN, weakness of lower extremities. Disposition of sciatica. Patient verbalized understanding of the plan and return to ED criteria and engaged in shared decision making. Medical Records Medical records reviewed: Yes I reviewed the patient's medical records. Quality:[facility] Health Related Social Needs: Health related social needs details N/A PFSH All Active Problems (Updated 02/16/25 @ 18:15 by VIVIENNE Maria) Sciatica (Acute) Anemia (Chronic) Back pain (Acute) care following vaginal delivery (Acute) Dali infection (Acute) of skin in breast area History of OCD (obsessive compulsive disorder) (Acute) Per Pt (not formally Dx) Need to rule out. Anemia affecting (Acute) Anxiety (Chronic 03/19/16) Per Pt- Dx'd as a child - unsure who dx'd this. Medical History (Updated 02/16/25 @ 18:15 by VIVIENNE Maria) Tobacco use during Maternal varicella, non-immune Recurrent abdominal pain (06/16/15) Fecal urgency (02/02/15) Family history of cardiovascular disease (02/02/15) MATERNAL UNCLE [place] AND [place]LE BY-PASS AGE 35 Family history of celiac disease (02/02/15) Bunion of great toe of left foot Term of fraternal twins, both living Twin A born at 40 weeks. Healthy DEPRESSION OR ANXIETY ANGER ISSUES Surgical History Fracture, Closed Treatment Thumb - right Family History Mother Mental disorder DEPRESSION OR ANXIETY Heart disease [place] age 58 Diabetes Gestational diabetes Anxiety Father Mental disorder DEPRESSION OR ANXIETY Celiac disease [place] Substance abuse Mental disorder DEPRESSION OR ANXIETY Grandparent Mental disorder MGF Other Myocardial infarction [place] + Tripe bypass < age 50 Maternal Uncle Heart disease [place] age 35 Kidney stones Maternal Grandmother Diabetes Stroke Kidney disease Sister Pre-eclampsia affecting childbirth Sister Celiac disease Brother Alcohol use disorder Substance use disorder Social History Smoking/Tobacco Use Status: Current every day Tobacco Type: e-cigarettes Tobacco: How many years used: 3 Smokeless tobacco user: other (vape) Quit status: has quit before Smoking risk assessment performed?: Yes Alcohol Intake: never Drug use: Occasionally Substance use type: marijuana Housing: house Do you feel safe at home: Yes Do you feel safe in your relationship?: Yes History History 2 Para 0 Hx # Term Pregnancies 0 Multiple births 0 Hx # Pregnancies 0 Ectopic pregnancies 0 AB induced 1 Hx Number of Living Children 0 AB spontaneous 0 Past Pregnancies Del. Date GA/Weeks # Preg Succ Route Wgt Sex Labor Lgth Anesthesia Location [facility] 12/12/24 41 No Female koko BORGES Have you Been Recently Intoxicated or Drunk Within the Last 30 days?: No Have you Ever Experienced Previous Episodes of Alcohol Withdrawal?: No Have you ever Experienced Withdrawal Seizures?: No Have you ever Experienced Delirium Tremens(DT)s?: No Have you ever undergone Alcohol Rehabilitation Treatment (i.e, inpt ot outpatient treatment programs)?: No Have you ever Experienced Blackouts?: No Have you ever Combined Alcohol with other Downers within the last 90 days?: No Have you ever Combined Alcohol with any other Substance of Abuse during the last 90 days?: No Result: 0
[2025-02-16] MEDS: Ketorolac 30 MG/ML VIAL IM (18:01)
[2025-02-16] MEDS: Lidocaine 5% Patch 1 PATCH TP (18:01)
[2025-02-16] MEDS: Acetaminophen 500 MG TAB 1000 MG PO (18:01)
[2025-02-16] MEDS: diazePAM 2 MG TAB PO (18:01)
== END 2025-02-16 18:27 | disposition home or self-care (01) ==
PROVIDERS: Emergency Provider Physician Assistant
DX: M54.31 Sciatica, right side (principal)
CPT/HCPCS: 99284; 99283; 81025; 96372; J1885

== ENCOUNTER 2025-04-25 13:53 | Emergency (ER) | payer MEDICAID, SELFPAY ==
[2025-04-25 13:59] VITALS: BP 130/88; PULSE 92; RESP 16; TEMP 36.3; O2SAT 98
[2025-04-25 14:16] LABS: Glucose Negative (Negative)
--- NOTE | 2025-04-25 14:36 | W.ED.GENAD ---
Discharge Plan Disposition Patient Disposition: Home Condition: Stable Discharge Details Clinical Impression: Dysuria Primary Care Provider: Unknown,Unknown ED Provider: Lety Youngblood Home Meds and New Rx's Prescriptions: No Action levonorgestrel-ethinyl estrad [Marlissa (28)] 0.15-0.03 mg tablet 1 tab PO DAILY Qty: 28 12RF ferrous sulfate 325 mg (65 mg iron) tablet 325 mg PO DAILY Qty: 30 4RF cholecalciferol (vitamin D3) 50 mcg (2,000 unit) capsule 50 mcg PO DAILY Qty: 30 4RF acetaminophen 500 mg capsule 1,000 mg PO Q6H PRN ibuprofen [Advil] 200 mg tablet 600 mg PO Q6H PRN Discharge Instructions Instructions: Dysuria (ED) Additional Instructions: You were seen in the emergency department today for evaluation of pain at the end of urination. In our department you had reassuring vital signs and a negative urine test. Your urinalysis does not show any sign of infection, and we had a discussion about the possibility for yeast infection or other vaginitis. We obtained a swab and you will be contacted by phone with the results, and any prescriptions that you need will be sent to your pharmacy. Please maintain good hydration and nutrition, you may choose to avoid bladder irritants such as sugar, caffeine, and alcohol. Please avoid using heavily scented soaps/bubble bath in your vulvar area, and always urinate immediately after intercourse. Please follow-up with your primary care provider in the next few days to discuss this visit and any symptoms that change, worsen, or persist. Thank you for allowing us to be part of your care. Discharge Data Discharge Date/Time-TO BE ENTERED AT DEPARTURE: 04/25/25 14:49 HPI General Mode of arrival: ambulatory. Date/Time Provider Initiated Documentation: 04/25/25 14:12. Limitations to Documentation: no limitations. Information obtained by: patient and old records reviewed. HPI Narrative: This is a 25-year-old female patient with a past medical history significant for anemia, history of UTIs, recent and delivery over the summer, presenting for evaluation of 2 days of discomfort at the very end of urination. She reports that she feels a slight burning, feels like irritation, most notable at the very end of urination. She has had a small increase in her urinary frequency, denies hematuria. States that she feels similar to prior episodes of UTIs, though sometimes she has the symptoms and she does not end up having a UTI. She states that she has been trying to increase her hydration as that can sometimes mimic the symptoms. States that she uses control pills for contraception, no new sexual partners or concerns for STIs, is not sure if she is experiencing any changes in her vaginal discharge. Denies unexpected or abnormal vaginal bleeding. Has not tried any medications for management of the symptoms. She denies abdominal discomfort, nausea or vomiting, fever or chills, flank pain. Related Data Home Medications ?Medication ?Instructions ?Recorded ?Confirmed cholecalciferol (vitamin D3) 50 50 mcg PO DAILY #30 caps 01/25/25 04/25/25 mcg (2,000 unit) capsule ferrous sulfate 325 mg (65 mg 325 mg PO DAILY #30 tabs 01/25/25 04/25/25 iron) tablet levonorgestrel 0.15 mg-ethinyl 1 tab PO DAILY Contraception #28 01/25/25 04/25/25 estradiol 0.03 mg tablet (Marlissa tabs (28)) acetaminophen 500 mg capsule 1,000 mg PO Q6H PRN 02/16/25 04/25/25 ibuprofen 200 mg tablet (Advil) 600 mg PO Q6H PRN 02/16/25 04/25/25 Previous Rx's ?Medication ?Instructions ?Recorded cholecalciferol (vitamin D3) 50 50 mcg PO DAILY #30 caps 01/25/25 mcg (2,000 unit) capsule ferrous sulfate 325 mg (65 mg 325 mg PO DAILY #30 tabs 01/25/25 iron) tablet levonorgestrel 0.15 mg-ethinyl 1 tab PO DAILY Contraception #28 01/25/25 estradiol 0.03 mg tablet (Marlissa tabs (28)) Allergies Allergy/AdvReac Type Severity Reaction Status Date / Time No Known Allergies Allergy Verified 04/25/25 14:01 General Stated Complaint: Urinary BAUTISTA: 4 Exam Narrative Exam Narrative: Gen: Awake and alert, in no apparent distress HEENT: Non-icteric sclera Neck: Supple Lungs: No apparent respiratory distress, normal respiratory effort. CV: Appears well perfused Abdomen: Non-distended, soft MSK: Moves 4 extremities without apparent limitation in ROM Skin: Visualized skin without rashes, cyanosis. Neuro: Normal Gait, no obvious focal deficits or facial asymmetry. Speaks in full, clear sentences. Psych: Appropriate for situation. Course Vital Signs Vital signs: Vital Signs Temperature 36.3 C L 04/25/25 13:59 Pulse 92 H 04/25/25 13:59 Respiratory Rate 16 04/25/25 13:59 Blood Pressure 130/88 04/25/25 13:59 Pulse Oximetry 98 04/25/25 13:59 Temperature 36.3 C L 04/25/25 13:59 Temperature Source Oral 04/25/25 13:59 Pulse 92 H 04/25/25 13:59 Respiratory Rate 16 04/25/25 13:59 Blood Pressure 130/88 04/25/25 13:59 Blood Pressure Position Sitting 04/25/25 13:59 Pulse Oximetry 98 04/25/25 13:59 Oxygen Delivery Method Room Air 04/25/25 13:59 Oxygen Flow Rate 0 04/25/25 13:59 Pain Level 7 04/25/25 13:59 Lab/Test Results Lab/Test Results: Laboratory Tests Range/Units 04/25/25 14:05 Urine Color (Yellow) Yellow Urine Clarity (Clear) Clear Urine pH (5-8) 7.5 Ur Specific [place] (1.005-1.025) 1.020 Urine Protein (Neg-Trace) mg/dL Negative Urine Ketones (Negative) mg/dL Negative Urine Blood (Negative) Negative Urine Nitrite (Negative) Negative Urine Bilirubin (Negative) Negative Urine Urobilinogen (Up to 0.2) mg/dL 0.2 Ur Leukocyte Esterase (Negative) Negative Urine Glucose (Negative) mg/dL Negative POC- Test(urine) Negative Medical Decision Making This is a 25-year-old female patient presenting for evaluation of dysuria. My differential includes but is not limited to urinary tract infection, interstitial cystitis, certainly considered vaginitis/vaginosis. Patient history less concerning for STI, PID/TOA. No related symptoms at this time but I did consider early , ectopic . Reassuringly, there are no systemic symptoms to increase my concern for pyelonephritis, renal stone, sepsis or bacteremia. We obtained a [id number] urine screen which was negative. Her urinalysis is without evidence of infection such as nitrite, blood, leukocyte esterase, and I have a very low concern for UTI in the setting. I did review historical urine cultures, which typically have grown normal ami. The patient provided a vaginal swab for wet prep/vaginal pathogens panel. The patient is desiring to discharge prior to these results and I feel that this is reasonable given her reassuring workup and exam. I will contact the patient by phone with the results of the swab and provide her with prescriptions if needed. I counseled her on good vaginal hygiene, adequate hydration, and avoidance of bladder/urethral irritants such as excessive sugar, alcohol, and caffeine. At this time, the patient has had a full medical evaluation and is safe for discharge to home. They are hemodynamically stable, ambulatory, and tolerating PO. They are understanding of the follow-up plan and return precautions. They left our facility without incident. Vaginitis panel was negative for yeast, BV, and trichomoniasis. I contacted the patient by phone to give her these results. I will place a referral for primary care provider but did recommend that she contact women's wellness if her symptoms worsen or she has any other new concerns in the next few days. She had an opportunity to have all of her questions answered. Lety Youngblood MD Quality:[facility] Health Related Social Needs: Health related social needs details N/A PFSH All Active Problems (Updated 04/25/25 @ 14:40 by Lety Youngblood MD) Dysuria (Acute) Anemia (Chronic) Back pain (Acute) care following vaginal delivery (Acute) Dali infection (Acute) of skin in breast area History of OCD (obsessive compulsive disorder) (Acute) Per Pt (not formally Dx) Need to rule out. Anemia affecting (Acute) Anxiety (Chronic 03/19/16) Per Pt- Dx'd as a child - unsure who dx'd this. Medical History (Updated 04/25/25 @ 14:40 by Lety Youngblood MD) Tobacco use during Maternal varicella, non-immune Recurrent abdominal pain (06/16/15) Fecal urgency (02/02/15) Family history of cardiovascular disease (02/02/15) MATERNAL UNCLE [place] AND [place] BY-PASS AGE 35 Family history of celiac disease (02/02/15) Bunion of great toe of left foot Term of fraternal twins, both living Twin A born at 40 weeks. Healthy DEPRESSION OR ANXIETY ANGER ISSUES Surgical History Fracture, Closed Treatment Thumb - right Family History Mother Mental disorder DEPRESSION OR ANXIETY Heart disease [place] age 58 Diabetes Gestational diabetes Anxiety Father Mental disorder DEPRESSION OR ANXIETY Celiac disease [place] Substance abuse Mental disorder DEPRESSION OR ANXIETY Grandparent Mental disorder MGF Other Myocardial infarction [place] + Tripe bypass < age 50 Maternal Uncle Heart disease [place] age 35 Kidney stones Maternal Grandmother Diabetes Stroke Kidney disease Sister Pre-eclampsia affecting childbirth Sister Celiac disease Brother Alcohol use disorder Substance use disorder Social History Smoking/Tobacco Use Status: Current every day Tobacco Type: e-cigarettes Tobacco: How many years used: 3 Smokeless tobacco user: other (vape) Quit status: has quit before Smoking risk assessment performed?: Yes Alcohol Intake: never Drug use: Occasionally Substance use type: marijuana Housing: house Do you feel safe at home: Yes Do you feel safe in your relationship?: Yes History History 2 Para 0 Hx # Term Pregnancies 0 Multiple births 0 Hx # Pregnancies 0 Ectopic pregnancies 0 AB induced 1 Hx Number of Living Children 0 AB spontaneous 0 Past Pregnancies Del. Date GA/Weeks # Preg Succ Route Wgt Sex Labor Lgth Anesthesia Location [facility] 12/12/24 41 No Female koko Esparza
== END 2025-04-25 14:49 | disposition home or self-care (01) ==
LOC: ER 14:55
PROVIDERS: Physician Assistant; Emergency Provider Emergency Medicine
DX: R30.0 Dysuria (principal)
CPT/HCPCS: 99283; 99282; 81025; 81003; 87480; 87510; 87660